=== PATIENT | male | born 1980 | race Caucasian/White ===

== ENCOUNTER 2018-09-22 11:33 | Emergency (ER) | payer OTHER, MEDICAID, SELFPAY ==
[2018-09-22 11:39] VITALS: BP 147/102; PULSE 86; RESP 16; TEMP 36.5; O2SAT 100
[2018-09-22 12:33] LABS: Abs Immature Grans 0.01 k/cumm (0.0-0.09); Absolute Basophil Count 0.02 k/cumm (0.0-0.2); Absolute Eosinophil Count 0.07 k/cumm (0.0-0.7); Absolute Lymphocyte Count 1.72 k/cumm (1.2-3.4); Absolute Monocyte Count 0.84 k/cumm (0.11-0.7); Absolute Neutrophil Count 4.11 k/cumm (1.2-6.7); Basophils % 0.3; HGB 16.9 g/dL (13.5-17.5); Immature Grans % 0.1; Lymphocytes % 25.4; Mean Corp. HGB Concentration 35.2 g/dL (32.0-36.0); Mean Corpuscular Hemoglobin 32.1 pg (27.0-33.0); Mean Corpuscular Volume 91.1 fL (80-95); Mean Platelet Volume 8.9 fL (8.0-11.0); Monocytes % 12.4; Neutrophils % 60.8; Platelet Count 234 x1000/uL (130-400); RBC 5.27 m/cumm (4.50-6.00); RBC Distribution Width 12.6 % (11.8-14.1); White Blood Cell Count 6.77 k/cumm (4.4-10.8)
[2018-09-22] MEDS: Normal Saline 1,000 ML 1000 ML IV (12:34)
[2018-09-22 12:51] LABS: ALT 94 U/L (12-78); AST 31 U/L (15-37); Albumin 4.1 g/dL (3.4-5.0); Alkaline Phosphatase 53 U/L (46-116); Anion Gap 6.3 mmol/L (3-11); BUN 11 mg/dL (7-18); Bilirubin, Total 0.7 mg/dL (0.2-1.0); CO2 31.7 mmol/L (21.0-32.0); CREATININE 0.89 mg/dL (0.70-1.30); Calcium 9.4 mg/dL (8.5-10.1); Chloride 103 mmol/L (98-107); Glucose 91 mg/dL (70-100); Lipase 100 U/L (73-393); Potassium 4.5 mmol/L (3.5-5.1); Sodium 141 mmol/L (136-145)
[2018-09-22] MEDS: Breeza Beverage 473 ML BTL PO ×2 (13:05→13:06)
[2018-09-22] MEDS: Omnipaque 350 MG/ML 50 ML BTL PO (13:05)
[2018-09-22] MEDS: Omnipaque 350 MG/ML 100 ML BTL IJ (13:25)
--- NOTE | 2018-09-22 13:30 | DI.CT_ITS ---
SYMPTOM/DIAGNOSIS: ABDOMINAL PAIN CT ABDOMEN AND PELVIS: CT scan of the abdomen and pelvis was performed following oral and intravenous contrast material. There are no priors for comparison. The lung bases are clear. There is diffuse decreased attenuation of the liver consistent with hepatic steatosis. No suspicious hepatic masses are seen. The portal and superior mesenteric veins are patent. The gallbladder is negative. There is no biliary ductal dilatation. The pancreas is unremarkable as are the spleen and adrenal glands. The kidneys show normal and symmetric enhancement. There are right renal cysts present. No evidence of obstruction is seen. The urinary bladder is intact. The reproductive organs are unremarkable. The abdominal aorta is of normal caliber. No significant abdominal or pelvic adenopathy, ascites or pneumoperitoneum is seen. There is mild diffuse thickening of the wall of the colon predominantly the descending and sigmoid colon. There is question of mild increased attenuation of the pericolonic fat. The remainder of the bowel is unremarkable. There is a normal appendix present. The bones are intact with degenerative changes seen predominantly at the L5-S1 disc level. IMPRESSION: Mild diffuse bowel wall thickening in the distal colon. This may represent a colitis. Please correlate clinically.
--- NOTE | 2018-09-22 14:22 | DI.VRAD_ITS ---
EXAM: CT Abdomen and Pelvis With Contrast EXAM DATE/TIME: 09/22/2018 11:56 AM CLINICAL HISTORY: 38 years old, male; Signs and symptoms; Other: Abdominal pain; Additional info: 1 week of pain with diarrhea and cramping. TECHNIQUE: Axial computed tomography images of the abdomen and pelvis with intravenous contrast. All CT scans at this facility use at least one of these dose optimization techniques: automated exposure control; mA and/or kV adjustment per patient size (includes targeted exams where dose is matched to clinical indication); or iterative reconstruction. Coronal and sagittal reformatted images were created and reviewed. CONTRAST: 100 ml of Omnipaque 350 administered intravenously. COMPARISON: No relevant prior studies available. FINDINGS: Lower thorax: No acute findings. ABDOMEN: Liver: Moderate hepatic steatosis. Gallbladder and bile ducts: Normal. No calcified stones. No ductal dilation. Pancreas: Normal. No ductal dilation. Spleen: Normal. No splenomegaly. Adrenals: Normal. No mass. Kidneys and ureters: Few benign right renal cysts; largest measures 15 mm. Stomach and bowel: There is diffuse mild thickening of the colon wall, without stranding in the surrounding pericolonic fat. The thickening is most prominent in the descending colon. There are possible mild congestive changes in the pericolonic vasculature. The thickening appears partially fatty/submucosal, and this may be chronic, but clinical correlation is needed. Appendix: Normal appendix. PELVIS: Bladder: Unremarkable as visualized. Reproductive: Unremarkable as visualized. ABDOMEN and PELVIS: Intraperitoneal space: Normal. No free air. No significant fluid collection. Bones/joints: Moderate degenerative disc changes, L5-S1. Soft tissues: Unremarkable. Vasculature: Normal. No abdominal aortic aneurysm. Lymph nodes: Normal. No enlarged lymph nodes. IMPRESSION: Diffuse colonic wall thickening as described above, possibly chronic colitis. Acute colitis is felt to be less likely, though clinical correlation is needed. No obstruction. Normal appendix. Dictated and Authenticated by: Rolando Sellers MD. Ordering:EARLENE Craig MD
--- NOTE | 2018-09-22 15:12 | W.ED.GENAD ---
Discharge Plan Disposition Patient Disposition: HOME Condition: Stable Discharge Details Chief Complaint: Nausea/Vomit/Diar Clinical Impression: Chronic colitis Primary Care Provider: Wander Guillermo ED Provider: Rafa Ridley Home Meds and New Rx's Prescriptions: New Prilosec OTC 20 mg tablet,delayed release (DR/EC) 20 mg PO DAILY Qty: 30 RF: 0 Discharge Instructions Instructions: Rectal Bleeding (ED), Colitis (ED) Additional Instructions: Return immediately to the emergency department for any further concerns otherwise it is strongly encouraged for you to follow-up with your primary care provider in the next week along with arranging for further testing with general surgery. Referrals: [facility] [Provider Group] Wander Guillermo MD [Primary Care Provider] - 1 week (For reassessment) Discharge Data Discharge Date/Time-TO BE ENTERED AT DEPARTURE: 09/22/18 15:25 Medical Decision Making Diarrhea for a year and a half, intermittent epigastric pain, heavy alcohol use, over the last week having intermittent black stools and some mild bright red blood with wiping. Patient does state occasional mucus in his stool. 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 No physical exam findings noted but patient did defer rectal examination at this time. Patient does state some rectal itching and pressure so I suspect possible hemorrhoid but again patient refusing rectal examination at this time. Plan to check labs and CT scan. Concern for possible Crohn's, ulcerative colitis, infectious diarrhea. Pending the results patient given IV fluids. Patient does state that he did have Pepto-Bismol in an attempt to improve some of his symptoms. This may be contributing to some of his black stools that patient denies dark tarry but more watery in nature. Review of labs is nondiagnostic with no significant findings and no signs of anemia or electrolyte abnormalities. CT shows inflammatory changes throughout the colon with thickening and concern for possible chronic colitis. I feel that this correlates with patient's history of symptoms going on for a year and a half. Concern for Crohn's versus ulcerative colitis versus other inflammatory etiology. Given stable vital signs, chronic symptoms, no severe anemia and no signs of infection at this time I do feel that patient is able to be followed up on outpatient basis but I would recommend patient has colonoscopy to further diagnose condition. Patient placed up on care management list for arrangement of follow-up with primary care provider preferably in the next week and referral to general surgery for colonoscopy. Patient encouraged to return for any emergent change which were thoroughly discussed with patient otherwise follow-up with PCP. outpatient stool specimen was ordered After discussion of diagnosis and plan of care patient has no further needs, questions, or concerns and states clear understanding to return to the emergency department for any worsening symptoms. HPI General Mode of arrival: ambulatory. Date/Time Provider Initiated Documentation: 09/22/18 11:35. Limitations to Documentation: no limitations. Information obtained by: patient and RN notes reviewed. History of Present Illness described as moderate and similar to prior episodes, Quality is described as other (Denies current pain), Patient started experiencing this year(s) (1.5) and it has been constant. No relieving factors improve symptom(s), No exacerbating factors reported . Patient did receive the following treatments prior to arrival, other (Pepto-Bismol) Related Data Home Medications Medication Instructions Recorded Confirmed omeprazole magnesium [Prilosec OTC] 20 mg PO DAILY #30 tab 09/22/18 Previous Rx's Medication Instructions Recorded omeprazole magnesium [Prilosec OTC] 20 mg PO DAILY #30 tab 09/22/18 Allergies Allergy/AdvReac Type Severity Reaction Status Date / Time No Known Allergies Allergy Unverified 09/22/18 11:47 General Stated Complaint: Nausea/Vomit/Diar YUE: 3 Review of Systems Constitutional Denies chills, Denies fever(s) and Denies poor appetite Cardiovascular Denies chest pain and Denies dyspnea Respiratory Denies cough and Denies dyspnea Gastrointestinal Reports as per HPI, Reports abdominal pain, Denies melena, Reports hematochezia, Denies change in bowel habits, Denies constipation, Reports heartburn, Reports diarrhea, Denies nausea and Denies vomiting Genitourinary Denies hematuria, Denies difficulty urinating, Denies urinary hesitancy, Denies urinary incontinence and Denies urinary urgency Integumentary/Breasts Denies rash PFSH Medical History Alcohol abuse (Chronic) Gastric ulcer (Chronic) Social History Smoking and Tabacco status: Current every day alcohol intake: current alcohol intake frequency: 3 or more drinks per day Alcohol type: beer counseling given: Yes counseling provided: reduce to 2 or less/day substance use type: does not use Exam Const General: cooperative Orientation: alert, awake and oriented x3 Resp Effort & Inspection: normal respiratory effort and able to speak in complete sentences Auscultation: clear to auscultation bilaterally Cardio Rate: regular rate Rhythm: regular rhythm Heart Sounds: S1 normal and S2 normal GI Palpation: soft, no hepatosplenomegaly, not firm, no guarding, no masses, no pulsatile masses, not rigid, no splenomegaly and nontender Auscultation: normal bowel sounds Rectal Exam: deferred Back/Spine/Pelvis Back: no CVA tenderness Neuro General: alert, awake, oriented x3, gait normal and moves all extremities Course Vital Signs Temperature 36.5 C 09/22/18 11:39 Pulse 86 09/22/18 11:39 Respiratory Rate 16 09/22/18 11:39 Blood Pressure 147/102 H 09/22/18 11:39 Pulse Oximetry 100 09/22/18 11:39 Temperature 36.5 C 09/22/18 11:39 Temperature Source Temporal Artery Scan 09/22/18 11:39 Pulse 86 09/22/18 11:39 Respiratory Rate 16 09/22/18 11:39 Respiratory Effort Non-Labored 09/22/18 11:45 Blood Pressure 147/102 H 09/22/18 11:39 Blood Pressure Position Sitting 09/22/18 11:39 Pulse Oximetry 100 09/22/18 11:39 Oxygen Delivery Method Room Air 09/22/18 11:39 Oxygen Flow Rate 0 09/22/18 11:39 Pain Level 0 09/22/18 11:39 Lab/Test Results Lab/Test Results: Laboratory Tests Range/Units 09/22/18 09/22/18 12:15 12:15 WBC (4.4-10.8) k/cumm 6.77 RBC (4.50-6.00) m/cumm 5.27 Hgb (13.5-17.5) g/dL 16.9 Hct (40.0-50.0) % 48.0 MCV (80-95) fL 91.1 MCH (27.0-33.0) pg 32.1 MCHC (32.0-36.0) g/dL 35.2 RDW (11.8-14.1) % 12.6 Plt Count (130-400) x1000/uL 234 MPV (8.0-11.0) fL 8.9 Immature Gran % 0.1 Neutrophils % 60.8 Lymphocytes % 25.4 Monocytes % 12.4 Eosinophils % 1.0 Basophils % 0.3 Absolute Neutrophils (1.2-6.7) k/cumm 4.11 Absolute Lymphocytes (1.2-3.4) k/cumm 1.72 Absolute Monocytes (0.11-0.7) k/cumm 0.84 H Absolute Eosinophils (0.0-0.7) k/cumm 0.07 Absolute Basophils (0.0-0.2) k/cumm 0.02 Sodium (136-145) mmol/L 141 Potassium (3.5-5.1) mmol/L 4.5 Chloride (98-107) mmol/L 103 Carbon Dioxide (21.0-32.0) mmol/L 31.7 Anion Gap (3-11) mmol/L 6.3 BUN (7-18) mg/dL 11 Creatinine (0.70-1.30) mg/dL 0.89 Estimated GFR/1.73 m2 (mL/min/1.73m2) >= 60.00 Glucose (70-100) mg/dL 91 Calcium (8.5-10.1) mg/dL 9.4 Total Bilirubin (0.2-1.0) mg/dL 0.7 AST (15-37) U/L 31 ALT (12-78) U/L 94 H Alkaline Phosphatase (46-116) U/L 53 Total Protein (6.4-8.2) g/dL 8.0 Albumin (3.4-5.0) g/dL 4.1 Lipase (73-393) U/L 100
--- NOTE | 2018-09-22 15:19 | ED.GENADUL_ITS ---
Discharge Plan Disposition Patient Disposition: HOME Condition: Stable Discharge Details Chief Complaint: Nausea/Vomit/Diar Clinical Impression: Chronic colitis Primary Care Provider: Wander Guillermo ED Provider: Rafa Ridley Home Meds and New Rx's Prescriptions: New Prilosec OTC 20 mg tablet,delayed release (DR/EC) 20 mg PO DAILY Qty: 30 RF: 0 Discharge Instructions Instructions: Rectal Bleeding (ED), Colitis (ED) Additional Instructions: Return immediately to the emergency department for any further concerns otherwise it is strongly encouraged for you to follow-up with your primary care provider in the next week along with arranging for further testing with general surgery. Referrals: [facility] [Provider Group] Wander Guillermo MD [Primary Care Provider] - 1 week (For reassessment) Discharge Data Discharge Date/Time-TO BE ENTERED AT DEPARTURE: 09/22/18 15:25 Medical Decision Making Diarrhea for a year and a half, intermittent epigastric pain, heavy alcohol use, over the last week having intermittent black stools and some mild bright red blood with wiping. Patient does state occasional mucus in his stool. 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 No physical exam findings noted but patient did defer rectal examination at this time. Patient does state some rectal itching and pressure so I suspect possible hemorrhoid but again patient refusing rectal examination at this time. Plan to check labs and CT scan. Concern for possible Crohn's, ulcerative colitis, infectious diarrhea. Pending the results patient given IV fluids. Patient does state that he did have Pepto-Bismol in an attempt to improve some of his symptoms. This may be contributing to some of his black stools that patient denies dark tarry but more watery in nature. Review of labs is nondiagnostic with no significant findings and no signs of anemia or electrolyte abnormalities. CT shows inflammatory changes throughout the colon with thickening and concern for possible chronic colitis. I feel that this correlates with patient's history of symptoms going on for a year and a half. Concern for Crohn's versus ulcerative colitis versus other inflammatory etiology. Given stable vital signs, chronic symptoms, no severe anemia and no s igns of infection at this time I do feel that patient is able to be followed up on outpatient basis but I would recommend patient has colonoscopy to further diagnose condition. Patient placed up on care management list for arrangement of follow-up with primary care provider preferably in the next week and referral to general surgery for colonoscopy. Patient encouraged to return for any emergent change which were thoroughly discussed with patient otherwise follow-up with PCP. outpatient stool specimen was ordered After discussion of diagnosis and plan of care patient has no further needs, questions, or concerns and states clear understanding to return to the emergency department for any worsening symptoms. HPI General Mode of arrival: ambulatory . Date/Time Provider Initiated Documentation: 09/22/18 11:35 . Limitations to Documentation: no limitations . Information obtained by: patient and RN notes reviewed . History of Present Illness described as moderate and similar to prior episodes, Quality is described as other (Denies current pain), Patient started experiencing this year(s) (1.5) and it has been constant. No relieving factors improve symptom(s), No exacerbating factors reported . Patient did receive the following treatments prior to arrival, other (Pepto-Bismol) Related Data Home Medications Medication Instructions Recorded Confirmed omeprazole magnesium [Prilosec OTC] 20 mg PO DAILY #30 tab 09/22/18 Previous Rx's Medication Instructions Recorded omeprazole magnesium [Prilosec OTC] 20 mg PO DAILY #30 tab 09/22/18 Allergies Allergy/AdvReac Type Severity Reaction Status Date / Time No Known Allergies Allergy Unverified 09/22/18 11:47 General Stated Complaint: Nausea/Vomit/Diar YUE: 3 Review of Systems Constitutional Denies chills, Denies fever(s) and Denies poor appetite Cardiovascular Denies chest pain and Denies dyspnea Respiratory Denies cough and Denies dyspnea Gastrointestinal Reports as per HPI, Reports abdominal pain, Denies melena, Reports hematochezia, Denies change in bowel habits, Denies constipation, Reports heartburn, Reports diarrhea, Denies nausea and Denies vomiting Genitourinary Denies hematuria, Denies difficulty urinating, Denies urinary hesitancy, Denies urinary incontinence and Denies urinary urgency Integumentary/Breasts Denies rash PFSH Medical History Alcohol abuse (Chronic) Gastric ulcer (Chronic) Social History Smoking and Tabacco status: Current every day alcohol intake: current alcohol intake frequency: 3 or more drinks per day Alcohol type: beer counseling given: Yes counseling provided: reduce to 2 or less/day substance use type: does not use Exam Const General: cooperative Orientation: alert, awake and oriented x3 Resp Effort & Inspection: normal respiratory effort and able to speak in complete sentences Auscultation: clear to auscultation bilaterally Cardio Rate: regular rate Rhythm: regular rhythm Heart Sounds: S1 normal and S2 normal GI Palpation: soft, no hepatosplenomegaly, not firm, no guarding, no masses, no pulsatile masses, not rigid, no splenomegaly and nontender Auscultation: normal bowel sounds Rectal Exam: deferred Back/Spine/Pelvis Back: no CVA tenderness Neuro General: alert, awake, oriented x3, gait normal and moves all extremities Course Vital Signs Temperature 36.5 C 09/22/18 11:39 Pulse 86 09/22/18 11:39 Respiratory Rate 16 09/22/18 11:39 Blood Pressure 147/102 H 09/22/18 11:39 Pulse Oximetry 100 09/22/18 11:39 Temperature 36.5 C 09/22/18 11:39 Temperature Source Temporal Artery Scan 09/22/18 11:39 Pulse 86 09/22/18 11:39 Respiratory Rate 16 09/22/18 11:39 Respiratory Effort Non-Labored 09/22/18 11:45 Blood Pressure 147/102 H 09/22/18 11:39 Blood Pressure Position Sitting 09/22/18 11:39 Pulse Oximetry 100 09/22/18 11:39 Oxygen Delivery Method Room Air 09/22/18 11:39 Oxygen Flow Rate 0 09/22/18 11:39 Pain Level 0 09/22/18 11:39 Lab/Test Results Lab/Test Results: Laboratory Tests Range/Units 09/22/18 09/22/18 12:15 12:15 WBC (4.4-10.8) k/cumm 6.77 RBC (4.50-6.00) m/cumm 5.27 Hgb (13.5-17.5) g/dL 16.9 Hct (40.0-50.0) % 48.0 MCV (80-95) fL 91.1 MCH (27.0-33.0) pg 32.1 MCHC (32.0-36.0) g/dL 35.2 RDW (11.8-14.1) % 12.6 Plt Count (130-400) x1000/uL 234 MPV (8.0-11.0) fL 8.9 Immature Gran % 0.1 Neutrophils % 60.8 Lymphocytes % 25.4 Monocytes % 12.4 Eosinophils % 1.0 Basophils % 0.3 Absolute Neutrophils (1.2-6.7) k/cumm 4.11 Absolute Lymphocytes (1.2-3.4) k/cumm 1.72 Absolute Monocytes (0.11-0.7) k/cumm 0.84 H Absolute Eosinophils (0.0-0.7) k/cumm 0.07 Absolute Basophils (0.0-0.2) k/cumm 0.02 Sodium (136-145) mmol/L 141 Potassium (3.5-5.1) mmol/L 4.5 Chloride (98-107) mmol/L 103 Carbon Dioxide (21.0-32.0) mmol/L 31.7 Anion Gap (3-11) mmol/L 6.3 BUN (7-18) mg/dL 11 Creatinine (0.70-1.30) mg/dL 0.89 Estimated GFR/1.73 m2 (mL/min/1.73m2) >= 60.00 Glucose (70-100) mg/dL 91 Calcium (8.5-10.1) mg/dL 9.4 Total Bilirubin (0.2-1.0) mg/dL 0.7 AST (15-37) U/L 31 ALT (12-78) U/L 94 H Alkaline Phosphatase (46-116) U/L 53 Total Protein (6.4-8.2) g/dL 8.0 Albumin (3.4-5.0) g/dL 4.1 Lipase (73-393) U/L 100
--- NOTE | 2018-09-24 09:23 | PDOC.ERCMPRO ---
Care Management Progress Note 09/24-Binh LOUIS requested assistance with a PCP ([facility]) and general surgery f/u in one week for chonic colitis ? colonoscoy. Referral faxed to [facility] and to General surgery this am.
--- NOTE | 2018-09-24 09:37 | CMPROGNOTE_ITS ---
Care Management Progress Note 09/24-Binh LOUIS requested assistance with a PCP ([facility]) and general surgery f/u in one week for chonic colitis ? colonoscoy. Referral faxed to [facility] and to General surgery this am.
== END 2018-09-22 15:25 | disposition home or self-care (01) ==
PROVIDERS: Emergency Provider Nurse Practitioner Family; PCP Internal Medicine
DX: K52.9 Noninfective gastroenteritis and colitis, unspecified (principal)
CPT/HCPCS: 36415; 80053; 83690; 96360; 99285; 74177; 85025; 99284; J3490; Q9967

== ENCOUNTER 2018-09-23 12:10 | Outpatient (REF) | payer OTHER, MEDICAID, SELFPAY ==
[2018-09-25 11:06] LABS: Campylobacter PCR SEE COMMENTS; Salmonella PCR SEE COMMENTS; Shiga Toxin PCR SEE COMMENTS; Shigella/Enteroinvasive Ecoli SEE COMMENTS
== END 2018-09-23 12:30 ==
LOC: LBN 12:10
PROVIDERS: PCP Internal Medicine; Visit Provider Nurse Practitioner Family
DX: K51.919 Ulcerative colitis, unspecified with unspecified complications (principal)
CPT/HCPCS: 87329; 87505; 82272; 87177

== ENCOUNTER 2018-10-29 11:16 | Day surgery (SDC) | payer OTHER, SELFPAY ==
--- NOTE | 2018-10-29 10:41 | W.PM.ENDDOP ---
Date of service: 10/29/18 Time of Service: 12:30 Endoscopy Report DATE OF PROCEDURE: 10/29/18 PRE-OP DIAGNOSIS: Chronic Diarrhea POST-OP DIAGNOSIS: other (Duodenitis, reflux esophagitis, inflammation on the left side of the colon) PROCEDURE: 1. EGD with biopsies 2. Colonoscopy with biopsies of descendning, sigmoid and rectum SURGEON: Aniya Monet ANESTHESIA: other (General/ ASA 2/ Clau Baez, SENIOR TELECOMMUNICATIONS TECHNICIAN) ESTIMATED BLOOD LOSS: 5 PATHOLOGY: other (duodenal bx, antrum bx, ge junction/esophagus bx, descending and sigmoid bx, rectum bx) COMPLICATIONS: None DISPOSITION: same day INDICATIONS: Mr. Servin is a pleasant 38 year old male seen in the office for chronic diarrhea. He is also a heavy drinker. Recomendation was made for a colonoscopy and EGD. Risks, benefits and complications have been reviewed. Complications include but are not limited to bleeding, pain, perforation, missed small lesion/polyp, sore throat, aspiration and adverse reaction to the medications. Questions were entertained and answered to their satisfaction and they wished to proceed. No guarantees were given or implied. PREP: Miralax/Dulcolax PROCEDURE START TIME: 12:30 PROCEDURE END TIME: 13:20 COLONOSCOPY RETRACTION TIME: 24 minutes FINDINGS: Inflammation of the duodenum, esophagus. Signs of reflux Patchy inflammation of the descendning, sigmoid and rectum PROCEDURE DESCRIPTION: After informed consent was obtained the patient was take to the procedure room and placed in a supine position. Monitors were applied and a time out was done. The patients name, date of , procedure type, allergies to medications and metal in their body was reviewed. A bite block was placed and the patient was sedated. Once sedated and comfortable the gastroscope was advanced through the oropharynx which was grossly normal into the esophagus. The proximal and mid-esophagus were normal. In the distal esophagus there was some inflammation noted. The scope was advanced into the stomach and through the pylorus into the 3rd portion of the duodenum. The duodenum was noted to be inflammend in the 1st and 2nd portion. Biopsies were done of the duodenum to r/o celiac. The scope was retracted back into the stomach and biopsies were done to rule out H. pylori. There were no ulcers. The scope was retro-fexed. The cardia and fundus were noted to be normal. There was no hiatal hernia noted. The scope was retracted back into the esophagus and biopsies were done of the GE junction and esophagus from 40 to 36 cm to rule out Pyle's. The Z line was irregular. The GE junction was at 40 cm. While the patient was still sedated they were placed in a left decubitous position. A rectal exam was done. External exam was normal. Internal exam revealed a normal sphincter tone and no palpable masses. The prostate was smooth. The scope was then introduced and retro-flexed. No internal hemorrhoids were identified. There were no polyps and no mass in the rectum. ? cobbelstone mucusa in the rectum. The scope was then advanced to the cecum without difficulty. The TI and appendiceal orifice were identified. The prep was adequate. The scope was then slowly retracted over 24 minutes back into the rectum. Biopsies were done from the splenic flexure to the rectum. There was patchy inflammation noted from the splenic flexure to the rectum. The scope was removed and the patient was woken up and taken back to Same day surgery in stable condition. The patient tolerated the procedure well and there were no immediate complications. Follow up: 2-3 weeks
--- NOTE | 2018-10-29 10:43 | W.PM.DSUDISC ---
Discharge Plan Disposition Patient Disposition: HOME Condition: Good Discharge Details Reason For Visit: Colonoscopy and EGD Attending Provider: Aniya Monet Primary Care Provider: Wander Guillermo Home Meds and New Rx's Prescriptions: Continued albuterol 90 mcg/actuation aerosol IH RF: 0 Discontinued polyethylene glycol 3350 17 gram powder in packet 255 g PO DAILY Qty: 15 RF: 0 bisacodyl [Dulcolax (bisacodyl)] 5 mg tablet,delayed release (DR/EC) 5 mg PO ONCE Qty: 4 RF: 0 Discharge Instructions Instructions: Colonoscopy (DC), Upper Endoscopy (DC), Esophagitis (DC), Gastritis (DC), Gastroesophageal Reflux Disease (DC), Diet for Stomach Ulcers and Gastritis (GEN), Duodenitis (DC) Additional Instructions: Findings: Inflammation in the stomach, small bowel and esophagus Inflammation of the large bowel on the left Follow up: 11/13/18 @ 1:15 pm Please call if you develop: fevers >101.5 Nausea or Vomiting Abdominal pain that is not transient DAY SURGERY UNIT POST COLONOSCOPY INSTRUCTIONS 1. Because there will be medication in your system for the next 24 hours, you may feel a little sleepy. Your coordination will be affected. Therefore: a. Do not drive or operate dangerous equipment for 24 hours. b. Do not drink alcohol beverages for 24 hours (not even beer). c. Plan to go home and rest for the day. 2. Generally there are no restrictions on your activity after a day or so has gone by, but you may feel a bit fatigued for a few days. 3 After you arrive home you may have a light meal and return to a normal diet as you can tolerate it without feeling sick to your stomach. 4. After surgery, you may feel pain or discomfort. This should be only transient, but if it persists please contact your doctor. 5. If there are any questions regarding the findings of your procedure, please feel free to contact your doctor. 6. If you are unable to contact your doctor with a problem, contact the hospital at [phone]. 7. Continue all your regular medications unless directed otherwise. I understand the above instructions and have no questions. Signature of Patient or Responsible Adult Escort Date/Time Name of Responsible Adult Escort Signature of Nurse Date/Time Referrals: Aniya Monet MD [ [facility] STAFF PHYSICIAN] - 10/29/18 1:47 pm Activity:: Activity as Tolerated Diet:: As Tolerated Discharge Orders Discharge Orders: Discharge Order (Routine); Ordered 10/29/18 Ordered By: Aniya Moent DS: Diagnosis Discharge Diagnosis (1) S/P colonoscopy: Status: Acute (2) H/O esophagogastroduodenoscopy: Status: Chronic (3) Esophagitis: Status: Acute (4) Gastritis and duodenitis: Status: Acute (5) Colitis: Status: Acute
[2018-10-29 11:35] VITALS: BP 147/102; PULSE 86; RESP 20; TEMP 37.1; O2SAT 97
[2018-10-29 11:39] VITALS: BP 147/102; PULSE 86; RESP 20; TEMP 37.1; O2SAT 97
[2018-10-29] MEDS: Lactated Ringers 1,000 ML 80 ML IV (12:08)
--- NOTE | 2018-10-29 12:32 | BOWEL_PTH ---
PATIENT: Kosta Servin LOC: [facility] U#:[id number] AGE/SX: 38/M ROOM: RE10/29/[address]: Aniya Monet MD : 1980 BED: DIS: 10/29/2018 SPEC #: [id number] RECD: 10/29/18 15:47 STATUS: SIM REQ #: [id number] NATALIE: 10/29/18 12:[address]: Aniya Monet DEPT: Surgical Specimen RECD BY: America Gooden ENTERED: 10/29/18 15:49 SP TYPE: Bowel OTHR DR: Wander Guillermo Tissues: 1 - BIOPSY BOWEL 2 - BIOPSY BOWEL 3 - BIOPSY BOWEL 4 - BIOPSY BOWEL 5 - BIOPSY BOWEL Procedures: GROSS AND MICRO LEVEL 4 Comments: [id number]
[2018-10-29 14:00] VITALS: BP 147/84; PULSE 73; RESP 16; TEMP 36.3; O2SAT 98
[2018-10-29 14:32] LABS: C-Reactive Protein 0.14 mg/dL (0.0-0.3)
[2018-11-02 00:48] LABS: Saccharomyces cerevisiae IgA <10.0 U; Saccharomyces cervisiae IgG 12.4 U
== END 2018-10-29 14:11 | disposition home or self-care (01) ==
LOC: SUR 11:16
PROVIDERS: PCP Internal Medicine; Visit Provider Surgery
PROC: (CPT 45380; principal; 2018-10-29 11:30)
DX: K52.9 Noninfective gastroenteritis and colitis, unspecified (principal); K52.832 Lymphocytic colitis; K62.89 Other specified diseases of anus and rectum; K21.0 Gastro-esophageal reflux disease with esophagitis; F10.10 Alcohol abuse, uncomplicated; F17.210 Nicotine dependence, cigarettes, uncomplicated; I10 Essential (primary) hypertension
CPT/HCPCS: 45380; 43239; 36415; 88305; 86140; 86255; 86671; J3010

== ENCOUNTER 2020-11-11 10:28 | Outpatient (REF) | payer BC, SELFPAY ==
[2020-11-11 13:32] LABS: MCH 32.5 pg (27.0-33.0); MCHC 34.7 % (32.0-36.0); MCV 93.7 fL (80-95); MPV 9.3 fL (8.0-11.0); Platelet Count 221 10^3/uL (130-400); RBC 5.23 10^6/uL (4.36-5.78); RDW 11.8 % (11.8-14.1); RDW-SD 40.5 fL; WBC 5.48 10^3/uL (4.4-10.8)
[2020-11-11 13:52] LABS: ALT 51 U/L (16-63); AST 19 U/L (15-37); Albumin 4.4 g/dL (3.4-5.0); Alkaline Phosphatase 49 U/L (46-116); Anion Gap 3.7 mmol/L (3-11); BUN 19 mg/dL (7-18); Bilirubin, Total 0.6 mg/dL (0.2-1.0); CO2 27.3 mmol/L (21.0-32.0); CREATININE 0.9 mg/dL (0.70-1.30); Calcium 9.6 mg/dL (8.5-10.1); Chloride 102 mmol/L (98-107); Glucose 88 mg/dL (74-106); Potassium 4.5 mmol/L (3.5-5.1); Sodium 133 mmol/L (136-145); Total Protein 7.8 g/dL (6.4-8.2)
== END 2020-11-11 10:29 | disposition home or self-care (01) ==
LOC: NCHCN 10:28
PROVIDERS: PCP Internal Medicine; Visit Provider Family Medicine
DX: I10 Essential (primary) hypertension (principal); F10.20 Alcohol dependence, uncomplicated
CPT/HCPCS: 80053; 85027

== ENCOUNTER 2020-12-17 09:55 | Emergency (ER) | payer BC, SELFPAY ==
[2020-12-17 10:01] VITALS: BP 163/109; PULSE 94; RESP 16; TEMP 36.4; O2SAT 96
--- NOTE | 2020-12-17 10:16 | ED.GENADUL_ITS ---
Discharge Plan Disposition Patient Disposition: HOME Condition: Stable Discharge Details Clinical Impression: Lumbago Primary Care Provider: Wander Guillermo ED Provider: Olivia Hilton Home Meds and New Rx's Prescriptions: New cyclobenzaprine 10 mg tablet 10 mg PO TID PRN (Reason: muscle spasm) Qty: 10 RF: 0 tramadol 50 mg tablet 50 mg PO BID PRN (Reason: pain) Qty: 6 RF: 0 No Action albuterol 90 mcg/actuation aerosol IH RF: 0 budesonide 3 mg capsule,delayed,extend.release 3 mg PO DAILY Qty: 42 RF: 0 cyanocobalamin (vitamin B-12) 1,000 mcg Tablet 1,000 mcg PO DAILY RF: 0 diltiazem HCl 120 mg capsule,extended release 24 hr 120 mg PO DAILY RF: 0 ibuprofen 400 mg Tablet 400 mg PO TID PRNRF: 0 multivitamin with minerals Tablet 1 tab PO .QOD RF: 0 Discharge Instructions Instructions: Low Back Strain (ED), Lower Back Exercises (ED) Additional Instructions: Alternate ice and heat. Take medications as directed. No driving or operating heavy machinery while on medications. Follow up with primary care provider in 3-5 days. Return to ED sooner if any worsening or concerns. Increase oral fluids. Please take Tylenol or Ibuprofen with food every 4-6 hours as needed for pain and swelling. Stand Alone Forms: Work Release Referrals: Wander Guillermo MD [Primary Care Provider] - Medical Decision Making 40-year-old male presents the ER chief complaint of lower back pain which began on Monday after pushing a large piece of equipment while at work. He states he does have a history of back problems and a bulging disc approximately L4-L5. States since then he has had increased pain, denies any loss of bowel or bladder control, denies any saddle anesthesia. He does report some mild tingling in his toes intermittently. Pain gets worse with bending forward and is worse in the mornings. He has taken ibuprofen prior to arrival with little to no relief. He did have an MRI in 2017 that showed bulging disc at L4-L5. At this time no evidence for cauda equina or spinal cord compression. Denies any saddle anesthesia or loss of bowel or bladder control. Will begin with lumbar x-rays IM Toradol and IM diazepam. EXAM: XR LUMBAR SPINE COMPLETE CLINICAL HISTORY: Low back pain TECHNIQUE: COMPARISON: No exams were available for comparison FINDINGS: Five views were obtained. There is loss of height of the L5-S1 intervertebral disc consistent with disc degeneration. There are mild hypertrophic endplate changes at this level and mild hypertrophic facet joint changes of the lower lumbar spine. There is no evidence of spondylolysis or spondylolisthesis. No fracture identified. No gross erosive or destructive process. IMPRESSION: Degenerative changes of the lumbar spine as described above. No evidence of acute process Patient reevaluation, he states that he feels better after the medications. Discussed x-ray results with him he verbalizes understanding. Discuss strict return instructions and follow-up care with PCP HPI General Mode of arrival: ambulatory . Date/Time Provider Initiated Documentation: 12/17/20 09:58 . Limitations to Documentation: no limitations . Information obtained by: patient and old records reviewed . HPI Narrative: 40-year-old male presents the ER chief complaint of lower back pain which began on Monday after pushing a large piece of equipment while at work. He states he does have a history of back problems and a bulging disc approximately L4-L5. States since then he has had increased pain, denies any loss of bowel or bladder control, denies any saddle anesthesia. He does report some mild tingling in his toes intermittently. Pain gets worse with bending forward and is worse in the mornings. He has taken ibuprofen prior to arrival with little to no relief. He did have an MRI in 2017 that showed bulging disc at L4-L5. Related Data Home Medications Medication Instructions Recorded Confirmed albuterol 90 mcg/actuation aerosol mcg IH 10/08/18 10/19/18 inhaler budesonide 3 mg 3 mg PO DAILY #42 cap 11/05/18 12/17/20 capsule,delayed,extended release cyanocobalamin (vitamin B-12) 1,000 mcg PO DAILY 12/17/20 12/17/20 cyclobenzaprine 10 mg PO TID PRN #10 tab 12/17/20 diltiazem HCl 120 mg PO DAILY 12/17/20 12/17/20 ibuprofen 400 mg PO TID PRN 12/17/20 12/17/20 multivitamin with minerals 1 tab PO .QOD 12/17/20 12/17/20 tramadol 50 mg PO BID PRN #6 tab 12/17/20 Previous Rx's Medication Instructions Recorded budesonide 3 mg 3 mg PO DAILY #42 cap 11/05/18 capsule,delayed,extended release cyclobenzaprine 10 mg PO TID PRN #10 tab 12/17/20 tramadol 50 mg PO BID PRN #6 tab 12/17/20 Allergies Allergy/AdvReac Type Severity Reaction Status Date / Time lisinopril Allergy Intermediate unknown Verified 12/17/20 10:06 General Stated Complaint: Nk/Back Pain YUE: 4 Review of Systems All systems reviewed & are unremarkable except as noted in HPI and below Musculoskeletal Musculoskeletal: Reports back pain PFSH Medical History Alcohol abuse Chronic diarrhea of unknown origin Chronic pain Gastric ulcer GERD (gastroesophageal reflux disease) Hypertension Smoker Surgical History History of back surgery Social History Smoking/Tobacco Use Status: Current every day Tobacco Type: cigarettes Smoking packs per day: 0.5 Smoking cigarettes per day: 10.0 Smoking risk assessment performed?: Yes Alcohol Intake: current Alcohol Intake frequency: 3 or more drinks per day Alcohol type: beer Counseling given: Yes Counseling provided: reduce to 2 or less/day Details: drinks 12 to 15 Beers per day Drug use: Current Sobriety Substance use type: does not use Household members: family Housing: house Number of Children: 2 Do you feel safe in your relationship?: Yes Exam Back/Spine/Pelvis Back: no CVA tenderness Thoracic/Lumbar Spine: No kyphosis, paraspinal tenderness (Left lumbar paraspinal tenderness ), No thoracic spinal tenderness and No lumbar spinal tenderness Pelvis: no pain with anterior-posterior compression Course Vital Signs Vital signs: Vital Signs Temperature 36.4 C L 12/17/20 10:01 Pulse 94 H 12/17/20 10:01 Respiratory Rate 16 12/17/20 10:01 Blood Pressure 163/109 H 12/17/20 10:01 Pulse Oximetry 96 12/17/20 10:01 Temperature 36.4 C L 12/17/20 10:01 Temperature Source Skin 12/17/20 10:01 Pulse 94 H 12/17/20 10:01 Respiratory Rate 16 12/17/20 10:01 Respiratory Effort Non-Labored 12/17/20 10:01 Blood Pressure 163/109 H 12/17/20 10:01 Blood Pressure Position Sitting 12/17/20 10:01 Pulse Oximetry 96 12/17/20 10:01 Oxygen Delivery Method Room Air 12/17/20 10:01 Oxygen Flow Rate 0 12/17/20 10:01 Pain Level 10 12/17/20 10:07
--- NOTE | 2020-12-17 10:30 | DI.RAD_ITS ---
Exam(s) XR LUMBAR SPINE COMPLETE EXAM: XR LUMBAR SPINE COMPLETE CLINICAL HISTORY: Low back pain TECHNIQUE: COMPARISON: No exams were available for comparison FINDINGS: Five views were obtained. There is loss of height of the L5-S1 intervertebral disc consistent with d isc degeneration. There are mild hypertrophic endplate changes at this level and mild hypertrophic f acet joint changes of the lower lumbar spine. There is no evidence of spondylolysis or spondylolisth esis. No fracture identified. No gross erosive or destructive process. IMPRESSION: Degenerative changes of the lumbar spine as described above. No evidence of acute process RADIATION DOSE DELIVERED: Total DLP
[2020-12-17] MEDS: diazePAM 10 MG/2 ML SYR 5 MG IM (10:46)
[2020-12-17] MEDS: Ketorolac 60 MG/2 ML VIAL IM (10:47)
[2020-12-17] MEDS: Cyclobenzaprine 10 MG TAB, 3 TABS/BTL PO (11:23)
== END 2020-12-17 11:22 | disposition home or self-care (01) ==
PROVIDERS: Emergency Provider Registered Nurse Emergency; PCP Internal Medicine
DX: S39.012A Strain of muscle, fascia and tendon of lower back, initial encounter (principal); X50.9XXA Other and unspecified overexertion or strenuous movements or postures, initial encounter; Y99.0 Civilian activity done for income or pay
CPT/HCPCS: 96372; 99284; 72110; 99283; J1885; J3360

== ENCOUNTER 2021-08-06 15:53 | Outpatient (REF) | payer BC, SELFPAY ==
--- NOTE | 2021-08-06 12:30 | SKI_PTH ---
PATIENT: Kosta Servin LOC: [facility] U#:[id number] AGE/SX: 41/M ROOM: RE08/06/[address]: Jesus Baez : 1980 BED: DIS: 08/06/2021 SPEC #: [id number] RECD: 08/09/21 12:46 STATUS: SIM REQ #: [id number] NATALIE: 08/06/21 12:[address]: Jesus Baez DEPT: Surgical Specimen RECD BY: Sarah Marcus ENTERED: 08/09/21 12:47 SP TYPE: BRODY GARCIA DR: Wander Guillermo Tissues: 1 - SKIN BIOPSY(SHAVE/PUNCH) Procedures: SKIN LEVEL 4 Comments: [id number]
== END 2021-08-06 15:54 | disposition home or self-care (01) ==
LOC: LBN 15:53
PROVIDERS: PCP Internal Medicine; Visit Provider Nurse Practitioner Family
DX: L28.1 Prurigo nodularis (principal)
CPT/HCPCS: 88305

== ENCOUNTER 2024-04-01 17:20 | Outpatient (CLI) | payer BC, SELFPAY ==
--- OUTSIDE RECORDS SUMMARY | 2024-04-01 17:21 | XMS_ITS | Encounter Summary ---
Author Organization [facility] Address [facility] [place] [address] Care Team Providers Care Guide Domestic Tour Name Role Phone Wander Guillermo MD Primary Care Provider [phone] Reason for Visit * Auth/Cert Specialty Diagnoses / Procedures Referred By Clare ceron Referred To Contact Diagnoses Intervertebral disc disorders with radiculopathy, lumbar region lumbar radiculopathy Procedures PRO INJECTION DX/THER SBST INTRLMNR LMBR/SAC W/IMG GDN INJECTION, EPIDURAL, LUMBAR OR SACRAL (CAUDAL), WITH IMAGING GUIDANCE (WRVU 1.8) Referral ID Status Reason Start Date Expiration Date Visits Re quested Visits Authorized [id number] 1 1 Encounter Details Date Type Department Care Team (Late st Contact Info) Description 05/28/2021 3:30 PM EDT Ancillary [place] [id number] Drake Steiner MD [facility] [place] [address] Pain Social History Tobacco Use Types Packs/Day Years Used Date Smoking Tobacco: Every Day Cigarettes Smokeless Tobacco: Former Chew Sex and Gender Information Value Date Recorded Sex Assigned at Not on file Gender Identity Not on file Sexual Orientation Not on file documented as of this encounter Plan of Treatment Not on file documented as of this encounter Procedures Procedure Name Priority Date/Time Associated Diagnosis Comments FILM LIBRARY STORAGE ONLY PAIN CLINIC C ARM Routine 05/28/2021 4:22 PM EDT Pain documented in this encounter Results * Film Library- Storage Only pain Clinic C-Arm (05/28/2021 4:22 PM EDT) Narrative [facility] - 05/28/2021 4:22 PM EDT See PACS for result report. Drake Steiner MD IMG FILM LIBRARY ORD ERABLES [place], [place] documented in this encounter Visit Diagnoses Diagnosis Pain Generalized pain documented in this encounter Care Teams Guide Domestic Tour Relationship Specialty Start Date End Date Wander Guillermo MD [address] [place] [address] PCP - General Internal Medicine 12/28/20 documented as of this encounter
--- OUTSIDE RECORDS SUMMARY | 2024-04-01 17:21 | XMS_ITS | Encounter Summary ---
Author Organization [facility] Address [facility] [place] [address] Care Team Providers Care Fruit Farmer Name Role Phone Filomena Huber MD Primary Care Provider [phone] Encounter Details Date Type Department Care Team (Latest Contact Info) Description 11/10/2016 9:22 AM EDT - 11/10/2016 11:59 PM EDT Hospital Encounter XRay at [address] [place] [address] Emery Bowling MD [facility] [place] [address] Lumbar herniated disc Discharge Disposition: Home Social History Tobacco Use Types Packs/Day Years Used Date Smoking Tobacco: Every Day Cigarettes Smokeless Tobacco: Former Chew Sex and Gender Information Value Date Recorded Sex Assigned at Not on file Gender Identity Not on file Sexual Orientation Not on file documented as of this encounter Medications at Time of Discharge Medication Sig Dispensed Refills Start Date End Date ibuprofen (ADVIL;MOTRIN) 200 mg Tablet Take 800 mg by mouth every 8 hours as needed for Pain. gabapentin (NEURONTIN) 300 mg Capsule Take 3 capsules by mouth 3 times daily. 0 10/24/2016 05/14/2021 documented as of this encounter Plan of Treatment Not on file documented as of this encounter Procedures Procedure Name Priority Date/Time Associated Diagnosis Comments XR LUMBAR SPINE 2 OR 3 VIEWS Routine 11/10/2016 9:44 AM EDT Lumbar herniated disc documented in this encounter Results * XR Lumbar Spine 2 Or 3 Views (Generic) (11/10/2016 9:44 AM EDT) Anatomical Region Laterality Modality L-spine N/A Digital Radiogra phy Impressions 11/10/2016 9:55 AM EDT Degenerative disease of lumbar spine is present and most prominent in the lower lumbar spine. No instability. Narrative 11/10/2016 9:55 AM EDT EXAMINATION: XR LUMBAR SPINE 2 OR 3 VIEWS (GENERIC) CLINICAL HISTORY: AP lat flex/ext 3 views to eval lumbar herniated disc TECHNIQUE: Lumbar spine AP and lateral during flexion and extension. COMPARISON: None FINDINGS: There are five nonrib-bearing lumbar-type vertebrae. A tilt of the lumbar spine suggests that a thoracolumbar scoliosis is present. There is very mild narrowing of the L4-L5 disc interspace and of the L5-S1 disc interspace. Endplate associated osteophytes are seen at L5-S1. No instability is detected during flexion or extension. Procedure Note Jeff Becerra MD - 11/10/2016 EXAMINATION: XR LUMBAR SPINE 2 OR 3 VIEWS (GENERIC) CLINICAL HISTORY: AP lat flex/ext 3 views to eval lumbar herniated disc TECHNIQUE: Lumbar spine AP and lateral during flexion and extension. COMPARISON: None FINDINGS: There are five nonrib-bearing lumbar-type vertebrae. A tilt of the lumbar spine suggests that a thoracolumbar scoliosis ispresent. There is very mild narrowing of the L4-L5 disc interspace and of the L5-S1disc interspace. Endplate associated osteophytes are seen at L5-S1. No instability is detected during flexion or extension. IMPRESSION Degenerative disease of lumbar spine is present and most prominent in thelower lumbar spine. No instability. Emery oBwling MD IMG DX ORDERABLES documented in this encounter Visit Diagnoses Diagnosis Lumbar herniated disc Displacement of lumbar intervertebral disc without myelopathy documented in this encounter Care Teams Fruit Farmer Relationship Specialty Start Date End Date Filomena Huber MD [address] [place] [address] PCP - General 07/06/10 12/27/20 documented as of this encounter
--- OUTSIDE RECORDS SUMMARY | 2024-04-01 17:21 | XMS_ITS | Encounter Summary ---
Author Organization [facility] Address [address] [place] [address] Care Team Providers Care Senior Project Manager Name Role Phone Unavailable Primary Care Provider Unavailabl e Encounter Details Date Type Department Care Team (Latest Contact Info) Description 04/10/2001 17:40 EDT Hospital Encounter [facility] - [facility] [address] [place] [address] Emergency, Mana, MD Discharge Disposition: Home or Self Care Social History Tobacco Use Types Packs/Day Years Used Date Smoking Tobacco: Never Assessed Sex and Gender Information Value Date Recorded Sex Assigned at Not on file Gender Identity Not on file Sexual Orientation Not on file documented as of this encounter Discharge Disposition Disposition Code Departure Means Destination Home or Self Care documented in this encounter Plan of Treatment Not on file documented as of this encounter Procedures Procedure Name Priority Date/Time Associated Diagnosis Comments ANKLE 3 OR MORE VIEWS Routine 04/10/2001 18:18 EDT documented in this encounter Results * ANKLE 3 OR MORE VIEWS (04/10/2001 18:18 EDT) Anatomical Region Laterality Modality Other 04/10/2001 18:1 8 EDT Narrative 06/24/2009 3:20 EST LATERAL ANKLE INJURY W/ SWELLING TTP R/O LATERAL ANKLE FX RIGHT ANKLE: 04/10/01 TIME: 1810 FINDINGS: Three views of the right ankle show marked soft tissue swelling laterally and a small joint effusion. No fracture is identified. The mortise is intact. /eduarda Procedure Note Stephanie Horton, RN / P, M Peter Randle MD - 06/24/2009 LATERAL ANKLE INJURY W/ SWELLING TTP R/O LATERAL ANKLE FX RIGHT ANKLE: 04/10/01 TIME: 1810 FINDINGS: Three views of the right ankle show marked soft tissue swelling laterally and a small joint effusion. No fracture is identified. The mortise is intact. /eduarda Vasyl [facility] ING ORDERABLES documented in this encounter Visit Diagnoses Not on filedocumented in this encounter
--- OUTSIDE RECORDS SUMMARY | 2024-04-01 17:21 | XMS_ITS | Encounter Summary ---
Author Organization [facility] Address [facility] [place] [address] Care Team Providers Care Cable Maker Name Role Phone Filomena Huber MD Primary Care Provider [phone] Encounter Details Date Type Department Care Team (Latest Contact Info) Description 11/07/2016 - 11/07/2016 11:59 PM EDT Hospital Encounter [place] [address] Emery Bowling MD [facility] [place] [address] Pain Discharge Disposition: Home Social History Tobacco Use Types Packs/Day Years Used Date Smoking Tobacco: Never Assessed Sex and Gender Information Value Date Recorded Sex Assigned at Not on file Gender Identity Not on file Sexual Orientation Not on file documented as of this encounter Medications at Time of Discharge Medication Sig Dispensed Refills Start Date End Date gabapentin (NEURONTIN) 300 mg Capsule Take 3 capsules by mouth 3 times daily. 0 10/24/2016 05/14/2021 ibuprofen (ADVIL;MOTRIN) 600 mg tablet 600MG = 1 Tablet(s), PO, Q8H PRN 05/02/2006 11/10/2016 gabapentin (NEURONTIN) 600 mg tablet 11/18/2005 11/10/2016 documented as of this encounter Plan of Treatment Not on file documented as of this encounter Procedures Procedure Name Priority Date/Time Associated Diagnosis Comments FILM LIBRARY STORAGE ONLY MR SPINE Routine 11/07/2016 12:00 AM EDT Pain documented in this encounter Results * Film Library- Storage Only MR Spine (11/07/2016 12:00 AM EDT) Narrative [facility] - 11/08/2016 4:32 PM EDT This exam is for storage only and is auto-finalizing. Emery Bowling MD IMG FILM LIBRARY ORD ERABLES [place], [place] documented in this encounter Visit Diagnoses Diagnosis Pain Generalized pain documented in this encounter Care Teams Cable Maker Relationship Specialty Start Date End Date Filomena Huber MD [address] [place] [id number] PCP - General 07/06/10 12/27/20 documented as of this encounter
--- OUTSIDE RECORDS SUMMARY | 2024-04-01 17:21 | XMS_ITS | Encounter Summary ---
[facility] Organization [facility] [place] [address] Care Team Providers Care Video Game Programmer Name Role Phone Wander Guillermo MD Primary Care Provider + [phone] Reason for Visit * Auth/Cert Specialty Diagnoses / Procedures Referred By Clare ceron Referred To Contact Diagnoses Intervertebral disc disorders with radiculopathy, lumbar region lumbar radiculopathy Procedures PRO INJECTION DX/THER SBST INTRLMNR LMBR/SAC W/IMG GDN INJECTION, EPIDURAL, LUMBAR OR SACRAL (CAUDAL), WITH IMAGING GUIDANCE (WRVU 1.8) Referral ID Status Reason Start Date Expiration Date Visits Re quested Visits Authorized [id number] 1 1 Encounter Details Date Type Department Care Team (Latest Contact Info) Description 05/28/2021 2:37 PM EDT - 05/28/2021 4:21 PM EDT Hospital [place] [address] Drake Steiner MD [facility] [address] [place] [address] Radiculopathy of lumbar region; Herniation of lumbar intervertebral disc with radiculopathy Discharge Disposition: Home Social History Tobacco Use Types Packs/Day Years Used Date Smoking Tobacco: Every Day Cigarettes Smokeless Tobacco: Former Chew Sex and Gender Information Value Date Recorded Sex Assigned at Not on file Gender Identity Not on file Sexual Orientation Not on file documented as of this encounter Last Filed Vital Signs Vital Sign Reading Time Taken Comments Blood Pressure 152/102 05/28/2021 4:10 PM EDT Pulse 85 05/28/2021 3:10 PM EDT Temperature - - Respiratory Rate 21 05/28/2021 4:10 PM EDT Oxygen Saturation 100% 05/28/2021 4:10 PM EDT Inhaled Oxygen Concentration - - Weight 117.9 kg (260 lb) 05/28/2021 3:10 PM EDT Height 188 cm (6' 2) 05/28/2021 3:10 PM EDT Body Mass Index 33.38 05/28/2021 3:10 PM EDT documented in this encounter Discharge Instructions * Discharge Instructions* Fabian Wilkinson - 05/28/2021 4:15 PM EDT Pain Management Center Discharge Instructions: You were seen today by Surgeon(s): Drake Steiner MD The following was performed: Procedure(s) (LRB): INJECTION, EPIDURAL, LUMBAR OR SACRAL (CAUDAL), WITH IMAGING GUIDANCE (WRVU 1.8) (Left) It is normal that the injection site will be sore for up to 48 hours. [x] You may also experience mild stiffness in the joint near the injection site. You may resume your normal activities: tomorrow. You may shower today. DO NOT tub bathe, use whirlpools, hot tubs or pool therapy for 2 days. RemoveBand-Aid(s) later today/tomorrow. Do not drive until tomorrow. Use caution walking/climbing stairs as you may be unsteady on your feet. You may use your usual medications, including pain medications, as directed, unless otherwise instructed. You may use an ice pack as needed for the first 24 hours, on for 20 minutes then off for 20 minutes. Do not apply heat today. Attempt to empty your bladder 4-6 hours after your procedure. You received the following medications: Medications Given During Procedure Date/Time Order Dose Route Action 05/28/2021 1614 iohexoL (Omnipaque) (240 mg/mL) injection solution 1 mL Epidural Given 05/28/2021 1614 lidocaine (pf) (Xylocaine) (10 mg/mL) 1% injection 1 mL Other Given 05/28/2021 1614 methylPREDNISolone acetate (DEPO-Medrol) (80 mg/mL) injection 80 mg Epidural Given During regular business hours, please phone the Pain Management Center at with any questions or if the following or other troubling symptoms develop: 1) Prolonged dizziness or weakness (more than 1 day). 2) Localized swelling, redness or drainage at the injection site(s). 3) Temperature of 101 degrees that lasts for more than 4 hours. After 5 PM or on weekends, call and ask for Pain Clinic provider on-call. If you are unable to reach the Pain Management Center and have a complication, please call your Primary Care Provider or proceed to your local emergency department. Fabian Wilkinson Special instructions documented in this encounter Medications at Time of Discharge Medication Sig Dispensed Refills Start Date End Date multivitamin with minerals (Multivitamins with Minerals) 9 mg iron/15 mL Liquid Take 1 tablet by mouth. 12/17/2020 dilTIAZem (TIAZAC) 120 mg Capsule,Sustained Action 24 hr TAKE ONE CAPSULE BY MOUTH EVERY DAY 04/07/2021 traMADoL (Ultram) 50 mg Tablet Take 50 mg by mouth 2 times daily. 05/13/2021 ibuprofen (ADVIL;MOTRIN) 200 mg Tablet Take 800 mg by mouth every 8 hours as needed for Pain. documented as of this encounter H&P Notes * Drake Steiner MD - 05/28/2021 4:21 PM EDT Patient Name: Kosta Servin Patient Age: 41 y.o. Birthdate: 1980 Admit date: 05/28/2021 Attending Physician: Drake Steiner MD PREPROCEDURE HISTORY AND PHYSICAL Date of Visit: May 28, 2021 Chief Complaint: Low back pain radiating to the LLE HPI: Subjective Kosta Servin is a 41 y.o. male who presents today for Procedure: LESI Referred by Valentin Westbrook, DO The patient denies any recent NSAID or anticoagulation. The patient denies any allergy to local anesthetics, contrast dye, or steroids. The history is obtained from the patient, and I have reviewed medical records provided by the referring physician and located in the electronic medical record to fill in gaps in the patient's recollection of events, treatments and outcomes. LOCATION: Low back pain radiating to the LLE PAIN LEVEL AT REST 5/10 PAST MEDICAL HISTORY: No past medical history on file. PAST SURGICAL HISTORY: Past Surgical History: Procedure Laterality Date ??? PRO INJECTION DX/THER SBST INTRLMNR LMBR/SAC W/IMG GDN Left 05/28/2021 INJECTION, EPIDURAL, LUMBAR OR SACRAL (CAUDAL), WITH IMAGING GUIDANCE (WRVU 1.8) performed by Drake Steiner MD at [facility] PAIN MGMT MSO ALLERGIES: Lisinopril MEDICATIONS: No current facility-administered medications on file prior to encounter. Current Outpatient Medications on File Prior to Encounter Medication Sig Dispense Refill ??? dilTIAZem (TIAZAC) 120 mg Capsule,Sustained Action 24 hr TAKE ONE CAPSULE BY MOUTH EVERY DAY ??? traMADoL (Ultram) 50 mg Tablet Take 50 mg by mouth 2 times daily. ??? ibuprofen (ADVIL;MOTRIN) 200 mg Tablet Take 800 mg by mouth every 8 hours as needed for Pain. ??? multivitamin with minerals (Multivitamins with Minerals) 9 mg iron/15 mL Liquid Take 1 tablet by mouth. FAMILY HISTORY: No family history on file. SOCIAL HISTORY: Social History Socioeconomic History ??? Marital status: Spouse name: Not on file ??? Number of children: Not on file ??? Years of education: Not on file ??? Highest education level: Not on file Occupational History ??? Not on file Tobacco Use ??? Smoking status: Current Every Day Smoker Packs/day: 0.50 Types: Cigarettes ??? Smokeless tobacco: Former User Types: Chew Vaping Use ??? Vaping Use: Never used Substance and Sexual Activity ??? Alcohol use: Not on file ??? Drug use: Not on file ??? Sexual activity: Not on file Other Topics Concern ??? Not on file Social History Narrative ??? Not on file Social Determinants of Health Financial Resource Strain: ??? Difficulty of Paying Living Expenses: Not on file Food Insecurity: ??? Worried About Running Out of Food in the Last Year: Not on file ??? Ran Out of Food in the Last Year: Not on file Transportation Needs: ??? Lack of Transportation (Medical): Not on file ??? Lack of Transportation (Non-Medical): Not on file Physical Activity: ??? Days of Exercise per Week: Not on file ??? Minutes of Exercise per Session: Not on file Housing Stability: ??? Unable to Pay for Housing in the Last Year: Not on file ??? Number of Places Lived in the Last Year: Not on file ??? Unstable Housing in the Last Year: Not on file ROS: Pt denies recent fever, chills, infection, wounds, hospitalizations, ED visits, use of antibiotics.Otherwise, as described above. PHYSICAL EXAM: BP (!) 152/102 Pulse 85 Resp 21 Ht 188 cm (6' 2) Wt 117.9 kg (260 lb) SpO2 100% BMI 33.38 kg/m?? Physical Exam Constitutional: Pt oriented to person, place, and time. Appears well-developed and well-nourished. No distress. HENT: Normocephalic and atraumatic. Pulmonary/Chest: Effort normal. Neurological: Alert and oriented to person, place, and time. No cranial nerve deficit. Moves all extremities at least antigravity Skin: Skin is warm and dry. No rash noted. Not diaphoretic. Psychiatric: Normal mood and affect. RADIOLOGIC DATA: Relevant imaging reviewed LABS/DX RESULTS: Last 3 wbc, hgb, hct plt No results for input(s): WBC, HGB, HCT, PLATELET in the last 7068 hours. Last 3 Lytes No results for input(s): NA, K, CL, CO2, BUN, CREATININE in the last 7068 hours. Last 3 LFTs No results for input(s): AST, ALT, ALKPHOS, BILITOT, BILIDIR in the last 7068 hours. Last 3 Coags No results for input(s): PT, INR, PTT in the last 168 hours. Last 3 HgbA1C No results for input(s): HA1C in the last 7068 hours. ASSESSMENT: Assessment 1. Radiculopathy of lumbar region 2. Herniation of lumbar intervertebral disc with radiculopathy PLAN: Proceed with planned LESI. Addressed all questions and concerns. Risks and benefits discussed with patient. No contraindications to the procedure at this time, will proceed. Drake Steiner MD [facility] [place] [address] / documented in this encounter Miscellaneous Notes * Op Note - Drake Steiner MD - 05/28/2021 4:10 PM EDT Pain Management Operative Note Patient Name: Kosta Servin : [id number] MR#: [id number] Case Date: 05/28/2021 Surgeon: Surgeon(s) and Role: * Drake Steiner MD - Primary Present on Admission: Lumbar radiculopathy Postoperative diagnosis: Same Procedure(s) (LRB): INJECTION, EPIDURAL, LUMBAR OR SACRAL (CAUDAL), WITH IMAGING GUIDANCE (WRVU 1.8) (Left) LUMBAR INTERLAMINAR EPIDURAL STERIOID INJECTION PROCEDURE NOTE - L sided L4-5 Mr. Kosta Servin has been referred to the Pain Management Center for a lumbar epidural steroid injection by Valentin Westbrook [facility] [place] [address]. The patient complains of low back pain with pain radiating down the left leg. Mr. Servin was greeted by the nurse who verified patients name and . The patient was then taken to the fluoroscopy suite. Mr. Servin was interviewed and the medical record reviewed. There were no medical, pharmacologic, radiographic, or other structural contraindications to attempting fluoroscopically guided lumbar epidural steroid injection. Risks and potential side effects, as well as potential benefits of the procedure were reviewed with Mr. Servin. His voiced concerns were addressed. After I was assured that informed consent was obtained, the patient consent form was signed. Standard time-out procedure was performed. Mr. Servin was placed in the prone position on the fluoroscopy table and automated blood pressure cuff and pulse oximeter applied. The skin entry point for entering/approaching the L4-L5 epidural space for the lumbar epidural steroid injection was marked. Following thorough chlorhexidine preparation of the skin and draping and 1% lidocaine infiltration of the skin entry point and subcutaneous tissues, an 18 gauge Touhy needle was placed and advanced under fluoroscopic guidance and with loss of resistance technique into the L4-L5 epidural space. Needle tip placement and depth were aided and confirmed by fluoroscopy. There was no paresthesia or return of blood or CSF through the needle. 1 cc's of Omnipaque 240 was injected with clear epidural spread confirmed with fluoroscopy. Methylprednisolone 80 mg (1 ml) with Lidocaine 1% (2 ml) was injected slowly. This was followed by 1 cc of Lidocaine to flush the steroid out of the needle. There was not any unusual discomfort expressed by Mr. Servin. Mr. Servin's vital signs were stable throughout the procedure and were as recorded in nursing records. PLAN: 1. Follow up with Dr. Westbrook. Post procedure instruction was given as documented in nursing records and having met discharge criteria he was discharged from the Pain Management Center. I performed the procedure . Drake Steiner MD [facility] [place] [address] / CC: Valentin Westbrook, [facility] [place] [address] documented in this encounter Plan of Treatment Not on file documented as of this encounter Procedures Procedure Name Priority Date/Time Associated Diagnosis Comments Injection Dx/Ther Sbst Intrlmnr Lmbr/Sac W/Img Gdn (59192) 05/28/2021 4:05 PM EDT Herniation of lumbar intervertebral disc with radiculopathy INJECTION, EPIDURAL, LUMBAR OR SACRAL (CAUDAL), WITH IMAGING GUIDANCE Routine 05/28/2021 3:06 PM EDT Herniation of lumbar intervertebral disc with radiculopathy documented in this encounter Visit Diagnoses Diagnosis Radiculopathy of lumbar region- Primary Thoracic or lumbosacral neuritis or radiculitis, unspecified Radiculopathy of lumbar region Thoracic or lumbosacral neuritis or radiculitis, unspecified 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 PRN Medication Order 05/26/2021 05/27/2021 05/28/2021 iohexoL (Omnipaque) (240 mg/mL) injection solution (CANCELED) ONCE PRN, Starting on Mon05/28/21 at 1614, Until Mon05/28/21 at 1822, Intra-Operative (Intra-Procedure), Routine 1614 (Given - Provid er: Drake Steiner MD) lidocaine (pf) (Xylocaine) (10 mg/mL) 1% injection (CANCELED) ONCE PRN, Starting on Mon05/28/21 at 1614, Until Mon05/28/21 at 1822, Intra-Operative (Intra-Procedure), Routine 161 (Given - Provid er: Drake Steiner MD - Comment: Epidural) methylPREDNISolone acetate (DEPO-Medrol) (80 mg/mL) injection (CANCELED) ONCE PRN, Starting on Mon05/28/21 at 1614, Until Mon05/28/21 at 1822, Intra-Operative (Intra-Procedure), Routine 161 (Given - Provid er: Drake Steiner MD) documented in this encounter Care Teams Video Game Programmer Relationship Specialty Start Date End Date Wander Guillermo MD [address] [place] [address] PCP - General Internal Medicine 12/28/20 documented as of this encounter
--- OUTSIDE RECORDS SUMMARY | 2024-04-01 17:21 | XMS_ITS | Encounter Summary ---
Author Organization [facility] Address [address] [place] [address] Care Team Providers Care Mushroom Picker Name Role Phone Unknown, Provider Primary Care Provider [phone] Encounter Details Date Type Department Care Team (Latest Contact Info) Description 10/29/2018 18:02 EDT - 10/29/2018 23:59 EDT Hospital Encounter [address] [address] Unknown, Provider, Discharge Disposition: Home or Self Care Social History Tobacco Use Types Packs/Day Years Used Date Smoking Tobacco: Never Assessed Sex and Gender Information Value Date Recorded Sex Assigned at Not on file Gender Identity Not on file Sexual Orientation Not on file documented as of this encounter Discharge Disposition Disposition Code Departure Means Destination Home or Self [facility] documented in this encounter Plan of Treatment Not on file documented as of this encounter Visit Diagnoses Not on filedocumented in this encounter Care Teams Mushroom Picker Relationship Specialty Start Date End Date Unknown, Provider, PCP - General 06/24/15 10/31/18 documented as of this encounter
--- OUTSIDE RECORDS SUMMARY | 2024-04-01 17:21 | XMS_ITS | Clinical Summary ---
Author Organization [facility] Address [facility] [place] [address] Care Team Providers Care Indirect Fire Infantryman Name Role Phone Wander Guillermo MD Primary Care Provider [phone] Allergies Active Allergy Reactions Criticality Noted Date Comments Lisinopril Medium 12/17/2020 Other reaction(s): unknown Medications Medication Sig Dispensed Refills Start Date End Date Status ibuprofen (ADVIL;MOTRIN) 200 mg Tablet Take 800 mg by mouth every 8 hours as needed for Pain. Active multivitamin with minerals (Multivitamins with Minerals) 9 mg iron/15 mL Liquid Take 1 tablet by mouth. 12/17/2020 Active dilTIAZem (TIAZAC) 120 mg Capsule,Sustained Action 24 hr TAKE ONE CAPSULE BY MOUTH EVERY DAY 04/07/2021 Active traMADoL (Ultram) 50 mg Tablet Take 50 mg by mouth 2 times daily. 05/13/2021 Active Active Problems Problem Noted Date Diagnosed Date Radiculopathy of lumbar region 05/28/2021 HNP (herniated nucleus pulposus), lumbar 017 Social History Tobacco Use Types Packs/Day Years Used Date Smoking Tobacco: Every Day Cigarettes Smokeless Tobacco: Former Chew Sex and Gender Information Value Date Recorded Sex Assigned at Not on file Gender Identity Not on file Sexual Orientation Not on file Last Filed Vital Signs Vital Sign Reading [...] Mass Index 33.38 05/28/2021 3:10 PM EDT Plan of Treatment Health Maintenance Due Date Last Done Comments Pneumococcal Vaccine: At-Risk 5-64yrs (1 of 2 - PCV) 0 02/15/1988 HIV screen 02/15/2000 Hepatitis C Screening 02/15/2000 Lipid Screening 02/15/2000 Hepatitis B vaccine (0-59 yrs) (1) 2001 Tdap adult 2001 Tetanus vaccine 2001 Diabetes Screening (HgbA1C or Glucose) 2022 Covid-19 Vaccine (1 - 2022-24 season) 2023 Influenza (Flu) vaccine (1 o f 1 - Influenza standard series) 04/14/2024 Care Teams Indirect Fire Infantryman Relationship Specialty Start Date End Date Wander Guillermo MD [address] [place] [address] PCP - General Internal Medicine 12/28/20
--- OUTSIDE RECORDS SUMMARY | 2024-04-01 17:21 | XMS_ITS | Encounter Summary ---
Author Organization [facility] [place] [address] Care Team Providers Care Job Coach/Job Developer Name Role Phone Wander Guillermo MD Primary Care Provider [phone] Reason for Visit * Auth/Cert Specialty Diagnoses / Procedures Referred By Clare ceron Referred To Contact Diagnoses Intervertebral disc disorders with radiculopathy, lumbar region lumbar radiculopathy Procedures PRO INJECTION DX/THER SBST INTRLMNR LMBR/SAC W/IMG GDN INJECTION, EPIDURAL, LUMBAR OR SACRAL (CAUDAL), WITH IMAGING GUIDANCE (WRVU 1.8) Referral ID Status Reason Start Date Expiration Date Visits Re quested Visits Authorized [id number] 1 1 Encounter Details Date Type Department Care Team (Late st Contact Info) Description 05/28/2021 3:30 PM EDT - 05/28/2021 4:00 PM EDT [place] [id number] Drake Steiner MD [facility] [place] [address] INJECTION, EPIDURAL, LUMBAR OR SACRAL (CAUDAL), WITH IMAGING GUIDANCE (WRVU 1.8) Social History Tobacco Use Types Packs/Day Years Used Date Smoking Tobacco: Every Day Cigarettes Smokeless Tobacco: Former Chew Sex and Gender Information Value Date Recorded Sex Assigned at Not on file Gender Identity Not on file Sexual Orientation Not on file documented as of this encounter Last Filed Vital Signs Vital Sign Reading Time Taken Comments Blood Pressure 174/98 05/28/2021 3:10 PM EDT Pulse 85 05/28/2021 3:10 PM EDT Temperature - - Respiratory Rate - - Oxygen Saturation 97% 05/28/2021 3:10 PM EDT Inhaled Oxygen Concentration - - [...] 1.8) performed by Drake Steiner MD at [facility] PAIN MGMT MSO ALLERGIES: Lisinopril MEDICATIONS: No [...] [facility]ending [facility] [place] [address] / documented in this encounter Miscellaneous Notes * Op Note - Drake Steiner MD - 05/28/2021 4:10 PM EDT Pain Management Operative Note Patient Name: Kosta Servin : [id number] MR#: [id number] Case Date: 05/28/2021 Surgeon: Surgeon(s) and Role: [...] lumbar epidural steroid injection by Valentin Westbrook [facility] [place] [address]. 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, lumbar region documented in this encounter Administered Medications Inactive Administered Medications - up to 3 most recent administrations Medication Order MAR Action Action Date Dose Rate Site iohexoL (Omnipaque) (240 mg/mL) injection solution ONCE PRN, Starting on Mon05/28/21 at 1614, Until Mon05/28/21 at 1822, Intra-Operative (Intra-Procedure), Routine Given 05/28/2021 4:14 PM EDT 1 mL lidocaine (pf) (Xylocaine) (10 mg/mL) 1% injection ONCE PRN, Starting on Mon05/28/21 at 1614, Until Mon05/28/21 at 1822, Intra-Operative (Intra-Procedure), Routine Given 05/28/2021 4:14 PM EDT 1 mL methylPREDNISolone acetate (DEPO-Medrol) (80 mg/mL) injection ONCE PRN, Starting on Mon05/28/21 at 1614, Until Mon05/28/21 at 1822, Intra-Operative (Intra-Procedure), Routine Given 05/28/2021 4:14 PM EDT 80 mg documented in this encounter Active and Recently Administered Medications Times are shown in EDT. PRN Medication Order 05/26/2021 05/27/2021 05/28/2021 iohexoL (Omnipaque) (240 mg/mL) injection solution (CANCELED) ONCE PRN, Starting on Mon05/28/21 at 1614, Until Mon05/28/21 at 1822, Intra-Operative (Intra-Procedure), Routine 1613 (Given - Provid er: Drake Steiner MD) lidocaine (pf) (Xylocaine) (10 mg/mL) 1% injection (CANCELED) ONCE PRN, Starting on Mon05/28/21 at 1614, Until Mon05/28/21 at 1822, Intra-Operative (Intra-Procedure), Routine 1613 (Given - Provid er: Drake Steiner MD - Comment: Epidural) methylPREDNISolone acetate (DEPO-Medrol) (80 mg/mL) injection (CANCELED) ONCE PRN, Starting on Mon05/28/21 at 1614, Until Mon05/28/21 at 1822, Intra-Operative (Intra-Procedure), Routine 1613 (Given - Provid er: Drake Steiner MD) documented in this encounter Care Teams Job Coach/Job Developer Relationship Specialty Start Date End Date Wander Guillermo MD [address] [place] [address] PCP - General Internal Medicine 12/28/20 documented as of this encounter
--- OUTSIDE RECORDS SUMMARY | 2024-04-01 17:21 | XMS_ITS | Clinical Summary ---
Author Organization [facility] Address [address] [place] [address] Care Team Providers Care Small Boat Engineer Name Role Phone Wander Guillermo MD Primary Care Provider [phone] Social History Tobacco Use Types Packs/Day Years Used Date Smoking Tobacco: Never Assessed Interpersonal Safety Answer Date Record ed Physically Hurt Never 03/15/2020 Verbally Threaten Not on file 03/15/2020 Sex and Gender Information Value Date Recorded Sex Assigned at Not on file Gender Identity Not on file Sexual Orientation Not on file Plan of Treatment Health Maintenance Due Date Last Done Comments Hepatitis C Screen 1980 Hepatitis B Vaccine (1 of 3 - 19+ 3-dose series) 02/14 COVID-19 Vaccine ( season) 2023 Care Teams Small Boat Engineer Relationship Specialty Start Date End Date Wander Guillermo MD [address] [place], [place] [id number] PCP - General 11/01/18
--- OUTSIDE RECORDS SUMMARY | 2024-04-01 17:21 | XMS_ITS | Encounter Summary ---
Author Organization [facility] Address [facility] [place] [address] Care Team Providers Care Host/Hostess Restaurant Name Role Phone Filomena Huber MD Primary Care Provider [phone] Reason for Visit * Reason Comments Back Pain Right Leg Pain Encounter Details Date Type Department Care Team (Late st Contact Info) Description 11/10/2016 10:20 AM EDT Office [place] [address] Emery Bowling MD [facility] [place] [address] HNP (herniated nucleus pulposus), lumbar Social History Tobacco Use Types Packs/Day Years Used Date Smoking Tobacco: Every Day Cigarettes Smokeless Tobacco: Former Chew Sex and Gender Information Value Date Recorded Sex Assigned at Not on file Gender Identity Not on file Sexual Orientation Not on file documented as of this encounter Last Filed Vital Signs Vital Sign Reading Time Taken Comments Blood Pressure 168/95 11/10/2016 10:08 AM EDT Pulse - - Temperature - - Respiratory Rate - - Oxygen Saturation - - Inhaled Oxygen Concentration - - Weight 122.5 kg (270 lb) 11/10/2016 10:08 AM EDT Height 188 cm (6' 2) 11/10/2016 10:08 AM EDT Body Mass Index 34.67 11/10/2016 10:08 AM EDT documented in this encounter Progress Notes * Emery Bowling MD - 11/10/2016 10:20 AM EDT CHIEF COMPLAINT: Right lower extremity pain greater than low back pain. HISTORY OF PRESENT ILLNESS: Mr. Servin is a 36-year-old male I am seeing in consultation for Dr. Huber in regards to his back pain that radiates to his right buttock, right posterolateral thigh, and right lateral leg. It is associated with some numbness throughout the right foot and gets the sense that the right foot and ankle are weak. He occasionally gets some pain in the left lower extremity. The pain is worse with standing and walking and improves if he sits down. He has had back pain for many years and was consideringsurgery for an L4-S1 disk herniation about 10 years ago, however, those symptoms improved and he avoided surgery. His most recent set of symptoms began approximately 4 months ago in July. 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 The pain tends to keep him up at night. He denies constitutional symptoms. He notes some urinary urgency but no incontinence. He denies any numbness in his groin. He was taking gabapentin without much relief. He takes ibuprofen that gives him some partial relief. He has tried physical therapy and chiropractic manipulation in the past without much relief. He has had epidural steroid injections in the past with no relief. He has never had prior spinal surgery. PAST MEDICAL HISTORY: None. PAST SURGICAL HISTORY: None. FAMILY HISTORY: Diabetes. 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 He smokes 1 pack per day and drinks 6-12 drinks per night. REVIEW OF SYSTEMS: All negative except musculoskeletal as above. PHYSICAL EXAM: Patient is 6 feet 2 inches, 220 pounds with a BMI of 34.7. General: The patient is comfortable, in no acute distress. Back: His back is nontender to palpation. He can flex 30 degrees and extend 10 degrees. Neurologic exam: He walks with a normal gait. He can heel walk and toe walk. Motor exam reveals 4/5 strength in his right EHL and right peroneals. He has decreased sensation throughout his entire right foot. Reflexes are 2/4 at the knees and ankles and symmetric. He has a positive straight leg raise on the right. Straight leg raise on the left causes him right lower extremity pain. He has no clonus. Babinski is negative. Hip exam: He has normal, painless range of motion of both hips. Vascular exam: He has palpable pulses bilaterally. IMAGING: AP and lateral/flexion x-rays of the lumbar spine demonstrated a sciatic list to the left. The lateral views demonstrate marked degenerative changes at L5-S1 with no instability or spondylolisthesis. MRI of the lumbar spine from 11/07/16 demonstrates degenerative changes from L3 through the sacrum that are most pronounced at L5-S1 where there is near complete loss of disk height. At L3-L4, he has a broad-based, mild disk bulge not causing any nerve compression. At L4-L5, he has a large central and paracentral disk herniation compressing the entire thecal sac and causing severe narrowing of the right lateral recess. ASSESSMENT/PLAN: Mr. Servin is a 36-year-old male who presents with about 4 weeks of right L5 radiculopathy in the setting of a large central and right paracentral L4-L5 disk herniation. We discussed treatment options for this that include antiinflammatory medication, physical therapy, epidural steroid injection, and surgery. He is not sure how he wants to proceed. I gave him the link to the [employer] reports calculator study so he could run through that and see his predicted outcomes with surgery and nonoperative treatment. Surgery in his case would most likely involve a midline laminectomy with a bilateral diskectomy. He is going to think things over and will let us know how he wants to proceed. If he wants to proceed with an injection, I would recommend right L4-L5 transforaminal injection that can be done in the Pain Clinic. If he wants to discuss surgery, he should return to see me. He would need no further imaging. documented in this encounter Plan of Treatment Not on file documented as of this encounter Visit Diagnoses Diagnosis HNP (herniated nucleus pulposus), lumbar Displacement of lumbar intervertebral disc without myelopathy documented in this encounter Care Teams Host/Hostess Restaurant Relationship Specialty Start Date End Date Filomena Huber MD [address] [place] [id number] PCP - General 07/06/10 12/27/20 documented as of this encounter
--- OUTSIDE RECORDS SUMMARY | 2024-04-01 17:21 | XMS_ITS | Encounter Summary ---
Author Organization [facility] [place] [address] Care Team Providers Care Shipping And Receiving Material Handler Name Role Phone Wander Guillermo MD Primary Care Provider [phone] Encounter Details Date Type Department Care Team (Late st Contact Info) Description 05/27/2021 Telephone [facility] [place] [phone] Nina Torrez, RN Social History Tobacco Use Types Packs/Day Years Used Date Smoking Tobacco: Every Day Cigarettes Smokeless Tobacco: Former Chew Sex and Gender Information Value Date Recorded Sex Assigned at Not on file Gender Identity Not on file Sexual Orientation Not on file documented as of this encounter Miscellaneous Notes * Telephone Encounter - Nina Torrez, RN - 05/27/2021 9:58 AM EDT Contact made with patient or manufacturers representative as identified in contacts 1. Patient instructed to arrive at 15:00 on 05/28/21 with their driver license technician for their LESI procedure. Please plan to spend about 2 hours at the center. (3 hours for RFA) 2. Has pt started any new medications or supplements in the past two weeks? No 3. Have any of the following occurred within the two weeks before the procedure date? a. Patient is having a Covid vaccine or other vaccine No b. Patient has been exposed to anybody with a contagious illness such as Covid, flu, No c. Patient is taking antibiotics to treat an infection No d. Patient has any skin rashes, breakdown, blisters or open wounds No e. Patient has had any hospitalizations, ED visits, surgery, other procedure, dental procedure No f. Patient has taken oral steroids or had a steroid injection No g. Does patient have any of the following symptoms that are NEW and NOT explained by another healthcondition: fever or chills, cough, shortness of breath or difficulty breathing, fatigue, muscle or body aches, headache, new loss of taste or smell, sore throat, congestion or runny nose, nausea or vo miting, diarrhea. No If yes, the patient has been directed to the covid hotline for testing prior to their procedure. (route telephone note to: [facility] Public Health covid 19 nurse triage with routing comment stating pt needs covid test prior to procedure and give date of procedure, add name and MRN to tracking tool). h. Has the patient's pain resolved or significantly improved such as a rating of 3/10 or less? No 4. Was patient instructed to stop any medications? No if yes: a. Name of medication(s): b. Confirm date of last dose: 5. Is patient having a nerve block: No a. If yes instructed to not take any pain medication for 12 hours before your procedure. 6. Patient instructed to take any prescribed medications that they were not told to stop, especially blood pressure medication, because their procedure may be cancelled if their blood pressure is toohigh. 7. Was patient instructed to follow NPO guidelines: No if yes, the following instructions were reviewed: a. You may eat up to 6 hours before your procedure b. You may have clear liquids only up to 2 hours before your procedure: water, apple juice, natividad alaina, sprite, popsicles, broth, tea or coffee plain or with sweetener, absolutely no dairy products, no milk including soy, oat, almond. 8. IF RFA: Does patient have a pacemaker? No a. If yes, document that cardiology was called and notified. 9. Additional notes if applicable: Patient expressed understanding and agreement with instructions Yes Patient denies further questions Yes documented in this encounter Plan of Treatment Not on file documented as of this encounter Visit Diagnoses Not on filedocumented in this encounter Care Teams Shipping And Receiving Material Handler Relationship Specialty Start Date End Date Wander Guillermo MD [address] [place] [id number] PCP - General Internal Medicine 12/28/20 documented as of this encounter
--- OUTSIDE RECORDS SUMMARY | 2024-04-01 17:21 | XMS_ITS | Encounter Summary ---
[place] [address] Care Team Providers Care Public Health Registrar Name Role Phone Wander Guillermo MD Primary Care Provider [phone] Reason for Referral * Diagnostic Test (Routine) - Closed Specialty Diagnoses / Procedures Referred By Contac t Referred To Contact Radiology Diagnoses Back pain, unspecified back location, unspecified back pain laterality, unspecified chronicity Procedures MRI Lumbar Spine wo Contrast (Generic) Wander Guillermo MD [address] [place] [id number] [place] [address] Referral ID Status Reason Start Date Expiration Date V isits Requested Visits Authorized [id number] Closed Specialty Service Requested 03/09/2021 05/07/2021 1 1 Reason for Visit * Diagnostic Test (Routine) - Closed Specialty Diagnoses / Procedures Referred By Contac t Referred To Contact Radiology Diagnoses Back pain, unspecified back location, unspecified back pain laterality, unspecified chronicity Procedures MRI Lumbar Spine wo Contrast (Generic) Wander Guillermo MD [address] [place] [address] [place] [address] Referral ID Status Reason Start Date Expiration Date V isits Requested Visits Authorized [id number] Closed Specialty Service Requested 03/09/2021 05/07/2021 1 1 Encounter Details Date Type Department Care Team (Latest Contact Info) Description 04/10/2021 1:48 PM EDT - 04/10/2021 11:59 PM EDT Hospital [place] [address] Wander Guillermo MD [address] [place] [address] Back pain, unspecified back location, unspecified back pain laterality, unspecified chronicity Discharge Disposition: Home Social History Tobacco Use [...] ONE CAPSULE BY MOUTH EVERY DAY 04/07/2021 ibuprofen (ADVIL;MOTRIN) 200 mg Tablet Take 800 mg by mouth every 8 hours as needed for Pain. gabapentin (NEURONTIN) 300 mg Capsule Take 3 capsules by mouth 3 times daily. 0 10/24/2016 05/14/2021 documented as of this encounter Plan of Treatment Not on file documented as of this encounter Procedures Procedure Name Priority Date/Time Associated Diagnosis Comments MRI LUMBAR SPINE WITHOUT CONTRAST Routine 04/10/2021 2:42 PM EDT Back pain, unspecified back location, unspecified back pain laterality, unspecified chronicity documented in this encounter Results * MRI Lumbar Spine wo Contrast (Generic) (04/10/2021 2:42 PM EDT) Anatomical Region Laterality Modality L-spine Magnetic Resonan ce Impressions 04/10/2021 3:52 PM EDT Disc extrusion at L2-3 centrally. Disc protrusion at L3-4 left central and paracentral with moderate stenosis Central disc protrusion at L4-L5. Left paracentral disc protrusion at L5-S1 Comment: The following findings are so common in people without low back pain that while we report their presence, they must be interpreted with caution and in context of the clinical situation (Reference- Jarvik Et Al, Spine 2001). Findings: (Prevalence in patients without low back pain), disc degeneration (decreased T2 signal, height loss, bulge) (91%), disc T2-signal loss (83%), disc height loss (56%), disc bulge (64%), disc protrusion (32%), annular fissure (38%). Thank you for letting us participate in the care of this patient. ??If you are a health care provider and have any questions regarding this report, please contact the number below. ??For patients who have questions please contact the health manager critical care unit that requested your imaging first. ? Electronically signed by: Gómez Agarwal MD, [facility] ([phone]), at 04/10/2021 3:52 PM Narrative 04/10/2021 3:52 PM EDT EXAMINATION: MRI LUMBAR SPINE WO CONTRAST (GENERIC) CLINICAL HISTORY: back pain, lumbar, with radiculopathy TECHNIQUE: MRI of the lumbar spine performed without intravenous contrast administration. COMPARISON: Plain radiographs performed November 10, 2016 FINDINGS: Other than degenerative changes marrow signal intensity is normal. No neoplastic process is identified. The retroperitoneum shows no mass or aneurysm. Bilobed T2 hyperintensity seen in the medial parapelvic region of the right kidney likely represents parapelvic cysts Degenerative changes are seen throughout the lumbar spine. The T12-L1 level is normal. The L1-L2 level is normal. L2-L3 is remarkable for a central disc extrusion with migration superiorly approximately 2 cm. This extrusion indents the thecal sac but I do not see convincing evidence of impingement on neural elements. There is no significant spinal stenosis. The intervertebral foramina are patent. L3-L4 demonstrates a central and left paracentral extrusion of disc which indents the ventral thecal sac more so on the left than on the right and may result in impingement on the traversing nerve roots. The exiting L3 nerve roots are unaffected. Mild hypertrophic facet disease is seen. Degenerative changes result in moderate spinal stenosis at this level. L4-L5 shows a central moderate protrusion of disc material. It narrows the left subarticular zone and foramen but does not affect the extraforaminal zone. The right subarticular, foraminal and extraforaminal zones appear normal. There is disc protrusion does impinge on the ventral thecal sac but results in only minimal stenosis. Facet joints appear normal. L5-S1 demonstrates a left paracentral protrusion of disc material which extends into the left subarticular zone. Left subarticular and foraminal zones are narrowed while the extraforaminal zone is normal. The right subarticular zone, foraminal and foraminal zones are normal in appearance. The disc protrusion appears to likely impingement on the traversing S1 nerve root but probably does not impinge on the exiting L5 nerve root. Procedure Note Gómez Agarwal MD - 04/10/2021 EXAMINATION: MRI LUMBAR SPINE WO CONTRAST (GENERIC) CLINICAL HISTORY: back pain, lumbar, with radiculopathy TECHNIQUE: MRI of the lumbar spine performed without intravenous contrastadministration. COMPARISON: Plain radiographs performed November 10, 2016 FINDINGS: Other than degenerative changes marrow signal intensity is normal. Noneoplastic process is identified. The retroperitoneum shows no mass or aneurysm. Bilobed T2 hyperintensityseen in the medial parapelvic region of the right kidney likely representsparapelvic cysts Degenerative changes are seen throughout the lumbar spine. The T12-L1 level is normal. The L1-L2 level is normal. L2-L3 is remarkablefor a central disc extrusion with migration superiorly approximately 2 cm.This extrusion indents the thecal sac but I do not see convincing evidence of impingement on neural elements. There is no significant spinal stenosis.The intervertebral foramina are patent. L3-L4 demonstrates a central and left paracentral extrusion of discwhich indents the ventral thecal sac more so on the left than on the right andmay result in impingement on the traversing nerve roots. The exiting L3 nerveroots are unaffected. Mild hypertrophic facet disease is seen. Degenerativechanges result in moderate spinal stenosis at this level. L4-L5 shows a central moderate protrusion of disc material. It narrows theleft subarticular zone and foramen but does not affect the extraforaminal zone.The right subarticular, foraminal and extraforaminal zones appear normal.There is disc protrusion does impinge on the ventral thecal sac but results inonly minimal stenosis. Facet joints appear normal. L5-S1 demonstrates a left paracentral protrusion of disc material whichextends into the left subarticular zone. Left subarticular and foraminal zonesare narrowed while the extraforaminal zone is normal. The right subarticularzone, foraminal and foraminal zones are normal in appearance. The discprotrusion appears to likely impingement on the traversing S1 nerve root but probablydoes not impinge on the exiting L5 nerve root. IMPRESSION Disc extrusion at L2-3 centrally. Disc protrusion at L3-4 left central and paracentral with moderatestenosis Central disc protrusion at L4-L5. Left paracentral disc protrusion at L5-S1 Comment: The following findings are so common in people without low backpain that while we report their presence, they must be interpreted with cautionand in context of the clinical situation (Reference- Yasmeenvik Et Al, [id number]). Findings: (Prevalence in patients without low back pain), discdegeneration (decreased T2 signal, height loss, bulge) (91%), disc T2-signal loss(83%), disc height loss (56%), disc bulge (64%), disc protrusion (32%), annularfissure (38%). Thank you for letting us participate in the care of this patient. If youare a health care provider and have any questions regarding this report,please contact the number below. For patients who have questions please contactthe health manager critical care unit that requested your imaging first. Electronically signed by: Gómez Agarwal MD, [facility]([phone]), at 04/10/2021 3:52 PM Wander Guillermo MD IMG MRI ORDERABLES documented in this encounter Visit Diagnoses Diagnosis Back pain, unspecified back location, unspecified back pain laterality, unspecified chronicity documented in this encounter Care Teams Public Health Registrar Relationship Specialty Start Date End Date Wander Guillermo MD [address] [place] [address] PCP - General Internal Medicine 12/28/20 documented as of this encounter
--- OUTSIDE RECORDS SUMMARY | 2024-04-01 17:21 | XMS_ITS | Encounter Summary ---
Author Organization [facility] Address [address] [place] [address] Care Team Providers Care Agricultural Equipment Sales Manager Name Role Phone Unknown, Provider Primary Care Provider [phone] Encounter Details Date Type Department Care Team (Late st Contact Info) Description 10/29/2018 Results Only [facility] [phone] Mojgan Low MD [address] [place] [address] [address] [place], [place] [id number] Social History Tobacco Use Types Packs/Day Years Used Date Smoking Tobacco: Never Assessed Sex and Gender Information Value Date Recorded Sex Assigned at Not on file Gender Identity Not on file Sexual Orientation Not on file documented as of this encounter Plan of Treatment Not on file documented as of this encounter Procedures Procedure Name Priority Date/Time Associated Diagnosis Comments SURGICAL PATHOLOGY Routine 10/29/2018 9:58 EDT documented in this encounter Results * SURGICAL PATHOLOGY (10/29/2018 9:58 EDT) Pathology Report: SURGICAL PATHOLOGY REPORT Reports generated via electronic interface contain original data; however they are lacking the format of the original report. Caution should be taken when reading/interpretin g unformatted reports. Name: ? KOSTA ALY ? Accession #: ? [id number] ? : ? 1980 (Age: 38) ??M ? Collect Date: ? 10/29/2018 ? Location: ? [facility] ? Receive Date: ? 10/30/2018 ? Provider: MOJGAN LOW MD Copy to: MARIA DE JESUS ARAUJO MD ? Final Pathologic Diagnosis: A. SMALL INTESTINE, DUODENUM, BIOPSIES: - Benign duodenal mucosa showing no specific pathologic features. - There is no intraepithelial lymphocytosis or villous blunting. B. STOMACH, ANTRUM, BIOPSY: - Oxyntic mucosa showing no specific pathologic features. C. ESOPHAGUS, GASTROESOPHAGEAL JUNCTION, BIOPSIES: - Squamocolumnar mucosal tissue showing changes of reflux esophagitis. - Negative for intestinal metaplasia, negative for dysplasia. D. COLON, DESCENDING AND SIGMOID, BIOPSIES: - Colonic mucosa showing features consistent with lymphocytic colitis. E. COLON, RECTUM, BIOPSIES: - Rectal mucosa showing features consistent with lymphocytic proctitis. Document reviewed and electronically signed by: ARAM SANTANA MD Report ??Date: 11/03/2018 13:11 By the signature above, the attending physician certifies that he/she has personally conducted a gross and/or microscopic examination of the described specimens and rendered or confirmed the above diagnosis. Specimen(s) Received: A. ??Small bowel duodenum bxs B. ??Antrum bxs C. ??GE junction bxs D. ??Descending and sigmoid colon bxs E. ??Rectum bx Clinical History: GERD, chronic diarrhea (greater than 10 BMs per day); A. R/O celiac; D, E. R/O colitis Gross Description: A. ?Received in formalin labelled with proper patient identification (initials R, J) and small bowel duodenum biopsies are seven pink-power tissues (0.1 x 0.1 x 0.1 cm to 0.5 x 0.3 x 0.2 cm). Entirely submitted in A1 and A2. B. ?Received in formalin labelled with proper patient identification (initials R, J) and antrum biopsy are three pink-power tissues (0.1 x 0.1 x 0.1 cm, 0.1 x 0.1 x 0.1 cm, and 0.7 x 0.2 x 0.1 cm). Entirely submitted in B1. C. ?Received in formalin labelled with proper patient identification (initials R, J) and GE junction biopsies are four power-white tissues (0.2 x 0.1 x 0.1 cm to 0.4 x 0.3 x 0.2 cm). Entirely submitted in C1. D. ?Received in formalin labelled with proper patient identification (initials R, J) and descending and sigmoid colon biopsies are 14 pink-power tissues (0.2 x 0.2 x 0.1 cm to 0.7 x 0.2 x 0.1 cm). Entirely submitted in D1 to D4. E. ?Received in formalin labelled with proper patient identification (initials R, J) and rectal biopsies are four pink-power tissues (0.1 x 0.1 x 0.1 cm to 0.3 x 0.2 x 0.1 cm). Entirely submitted in E1. CLIFF Lamas (ASCP) 10/30/2018 11:06 AM End of Report [facility] 10/29/2018 9:58 EDT 10/30/2018 9:58 EDT Mojgan Low MD PATHOLOGY ORDERA [facility] Organization Address City/State/[facility] Co de Phone Number [facility] [address] [place] [address] documented in this encounter Visit Diagnoses Not on filedocumented in this encounter Care Teams Agricultural Equipment Sales Manager Relationship Specialty Start Date End Date Unknown, Provider, PCP - General 06/24/15 10/31/18 documented as of this encounter
--- OUTSIDE RECORDS SUMMARY | 2024-04-01 17:21 | XMS_ITS | Encounter Summary ---
Author Organization [facility] Address [address] [place] [address] Care Team Providers Care Software Analyst Name Role Phone Wander Guillermo MD Primary Care Provider [phone] Encounter Details Date Type Department Care Team (Late st Contact Info) Description 08/09/2021 Lab Requisition [facility] Pathology & Laboratory Medicine - [facility] [address] [place] [address] Jesus Chase, [address] [place] [place] [address] Encounter for other general examination Social History Tobacco Use Types Packs/Day Years [...] Priority Date/Time Associated Diagnosis Comments SURGICAL PATHOLOGY Today 08/06/2021 12 :30 EST Encounter for other general examination documented in this encounter Results * SURGICAL PATHOLOGY (08/06/2021 12:30 EST) Note to Patient The following pathology results have been interpreted by your pathologist and may be available to you before your health provider has had the opportunity to review them. Please allow time for your provider to receive these results and explore management options, if applicable. 08/10/2021 10:56 EST [facility] Final Diagnosis A. SKIN OF BACK, RIGHT LOWER, SHAVE BIOPSY: - Prurigo nodularis. 08/10/2021 10:56 [facility] Attestation By the signature below, the attending physician certifies that they have 1) personally conducted a gross and/or microscopic examination of the described specimen(s), and/or personally interpreted the results of laboratory testing of the described specimen(s), and 2) personally rendered or confirmed the above diagnosis. 08/10/2021 10:56 [facility] at 1055 Clinical History Skin lesion 08/10/2021 10:56 [facility] Gross Description A. Received in formalin labelled with proper patient identification (initials R, J) and R lower back is a 0.8 x 0.6 x 0.1 cm ovoid shave of friable, granular power-white skin. The margin is inked. The specimen is trisected and entirely submitted in A1. CLIFF ANGULO(ASCP) 08/09/2021 17:16 08/10/2021 10:56 [facility] Performing Lab [facility] 08/10/2021 10:56 [facility] Scanned Images 08/10/2021 10:56 [facility] Tissue TISSUE SPECIMEN FROM SKIN / Unknown 08/06/2021 12:30 EST 08/09/2021 16:03 EST Jesus Baez [facility] ORDERAB LES [facility] [address] [place] [address] documented in this encounter Visit Diagnoses Diagnosis Encounter for other general examination documented in this encounter Care Teams Software Analyst Relationship Specialty Start Date End Date Wander Guillermo MD [address] [place] [address] PCP - General 11/01/18 documented as of this encounter
--- OUTSIDE RECORDS SUMMARY | 2024-04-01 17:21 | XMS_ITS | Encounter Summary ---
[place] [address] Care Team Providers Care Contact Center Specialist Name Role Phone Wander Guillermo MD Primary Care Provider [phone] Reason for Referral * Consultation (Routine) - Closed Specialty Diagnoses / Procedures Referred By Clare ceron Referred To [facility] Diagnoses Herniation of lumbar intervertebral disc with radiculopathy Valentin Westbrook DO [address] [place] [address] [facility] [place] [address] Referral ID Status Reason Start Date Expiration Date V isits Requested Visits Authorized [id number] Closed Consult, Test & Treat 05/14/2021 05/14/2022 1 1 Reason for Visit * Reason Comments Back Pain lower back Left Leg Pain into the groin and d own leg/in hebert area * Consultation (Routine) - Closed Specialty Diagnoses / Procedures Referred By Clare ceron Referred To [facility] Diagnoses Other intervertebral disc displacement, lumbar region Radiculopathy, lumbar region Other chronic pain Lumbar radiculopathy/ disc herniation/ MRI 04/10/21 in eD Wander Guillermo MD [address] [place] [address] [facility] [place] [address] Referral ID Status Reason Start Date Expiration Date V isits Requested Visits Authorized [id number] Closed Consult, Test & Treat [facility] PCP Updated and/or Approved 04/13/2021 04/13/2022 12 12 Encounter Details Date Type Department Care Team (Late st Contact Info) Description 05/14/2021 3:00 PM EDT Office Visit [facility] [place] [address] Valentin Westbrook DO [address] [place] [address] Herniation of lumbar intervertebral disc with radiculopathy Social History Tobacco Use Types Packs/Day Years Used Date Smoking Tobacco: Every Day Cigarettes Smokeless Tobacco: Former Chew Sex and Gender Information Value Date Recorded Sex Assigned at Not on file Gender Identity Not on file Sexual Orientation Not on file documented as of this encounter Last Filed Vital Signs Vital Sign Reading Time Taken Comments Blood Pressure 145/98 05/14/2021 2:55 PM EDT Pulse 83 05/14/2021 2:55 PM EDT Temperature - - Respiratory Rate - - Oxygen Saturation - - Inhaled Oxygen Concentration - - Weight 117.9 kg (260 lb) 05/14/2021 2:55 PM EDT Height 188 cm (6' 2) 05/14/2021 2:55 PM EDT Body Mass Index 33.38 05/14/2021 2:55 PM EDT documented in this encounter Progress Notes * Valentin Westbrook DO - 05/14/2021 3:00 PM EDT [facility] Initial Consultation Note DOS: 05/13/21 : 1980 Kosta Servin is a 41 y.o. year old male with a PMH including lumbar disc herniation, hypertension who presents to the pain clinic today at the referral of Wander Guillermo MD [address] [place] [address] for consultation regarding low back pain. CC: No chief complaint on file. HPI: Kosta Servin prefers to be called Kosta. Kosta reports a long history of chronic intermittent back problems. He first injured his back about 14 or 15 years ago and was told that he might need surgery at that time. He eventually improved with conservative care. Is been intermittent problem thatflared up significantly 2016 at which point he had seen Dr. Bowling again he improved with conservative care. Since 2017 he has had intermittent mild low back pain. He had an acute exacerbation of low back pain starting in December of this year. On December 15. He was pushing a heavy radiator onto a kashif andhad acute pain in left side of his low back. This was relatively mild he kept working he woke up the next day with severe pain in the left side of his low back traveling down his left buttock posterior thigh and wrapping around onto the anterior left lower leg. This pain was quite severe for about 2 weeks. It subsequently did calm down to a more functional level. He was able to get back to work. Since that time however he is continued to have the symptoms the pain in the low back is a stabbing type discomfort. He frequently gets a numbness tingling sensation in the above- described leg distribution. Symptoms are aggravated with standing, bending twisting lifting are provocative repetitive activities are provocative. 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 He is able to get in certain positions that do relieve his pain. The tramadol he has been taking also seems to help. He has tried numerous topical medications without benefit. He does have some intermittent weakness in the leg and and numbness though this will resolve once he is up and moving. Getting up in the morning he is quite uncomfortable till he gets moving. Denies any bowel or flakita dder dysfunction, no saddle paresthesias, no history of fevers, chills or night sweats. No history of cancer. No drug use. No history of inflammatory arthropathy. Pain Description: Duration - pt had acute low back pain and radiculopathy in 2016, which subsquently improved. Had injury december 15 pushing radiator Location - left low back with radiation down anterior thigh into groin and post thigh into anteriorlower leg - to lesser degree right low back Quality - sharp, aching Weakness - intermittent weakness Numbness/Tingling - intermittent with standing Pain score: 4/10 today,6-7 /10 at worst, 0/10 at best, 5/10 on average (all in past week) Alleviating factors: sleeping on right side with knees flexed Aggravating factors: standing, lifting, repetitive activities, sitting in excavator/dozer on uneventerrain Prior Treatments/Medications (Per prior notes and patient): Medications : Topicals - bassam machuca, lidocaine patch, cBD NSAIDs - Advil Acetaminophen - no help Antidepressants - non Antieptileptics - gabapentin tried in past Muscle Relaxants - Opioids - tramadol Steroids - none PT: none Modalities: ice and heat Surgery: none Injections: 1 epidural in [facility] 14-15yrs ago -> no help Chiropractic: had tried Acupuncture: none Mental Health: none ROS: Constitutional: No unintentional weight loss or gain, fevers, chills, or night sweats. HENT: No recent hearing changes. No difficulty swallowing. Eyes: No recent vision changes. Respiratory: No cough or shortness of breath. Cardiovascular: No chest pain or syncope. GI: No diarrhea, nausea, vomiting, or constipation. : No dysuria, hesitancy, or urgency. No incontinence. Musculoskeletal: No muscle weakness. Skin: No rashes or lesions. Neurologic: No numbness/tingling. No difficulty with balance. Psychiatric: Mood ok. No SI/HI. Sleep is good. Heme/Lymph/Imm: No easy bleeding or brusing. PMH/PSH: Patient Active Problem List Diagnosis Code ??? HNP (herniated nucleus pulposus), lumbar M51.26 No past medical history on file. No past surgical history on file. FAMILY HISTORY: No family history on file. SOCIAL HISTORY: Tobacco : 1/2ppd Alcohol : mod. 2-3beer/day Recreational drug use : none Work : Works for [employer] Home : has 2 kids Hobbies : fishing, hunting, spending time with kids FUNCTIONAL STATUS: Independent in all ADLs. MEDICATIONS: Current Outpatient Medications: ??? gabapentin (NEURONTIN) 300 mg Capsule, Take 3 capsules by mouth 3 times daily., Disp: , Rfl: 0 ??? ibuprofen (ADVIL;MOTRIN) 200 mg Tablet, Take 1,200 mg by mouth every 6 hours as needed for Pain., Disp: , Rfl: ALLERGIES: No Known Allergies PHYSICAL EXAM: BP (!) 145/98 Pulse 83 Ht 188 cm (6' 2) Wt 117.9 kg (260 lb) BMI 33.38 kg/m?? General: Patient is seated comfortably in NAD, well-groomed. HEENT: Head atraumatic, EOMI. Respiratory: Breathing comfortably on RA. Cardiovascular: 2+ peripheral pulses, no swelling Abdominal: non-distended, non-tender to palpation Skin: No appreciable rashes or skin breakdown Psych: Appropriate affect, A&Ox3 , answers questions appropriately Musculoskeletal: Inspection - No gross appendicular or axial deformities Palpation -no midline or paraspinal tenderness in the thoracic spine, mild midline and left paraspinal muscle tenderness in the lumbar. No tenderness at the PSIS/SI joint. No tenderness over the lateral anterior hips ROM -slightly restricted forward flexion, extension and side bending Special tests - SLR b/l -positive left side Slump test -positive left side Facet joint loading (Kemps) -negative JOSE -negative bilateral FADIR -negative bilateral Stinchfield -negative bilateral Gaenslen's -negative bilateral Colt's Finger -negative Neurologic: shaft repairer - grossly intact Reflexes - 2/4 and symmetric in bilateral biceps, triceps, brachioradiali, 2/4 patellae, and Achilles. No ankle clonus. Babinkski downgoing bilaterally, Neg. Holloway Motor - 5/5 upper extremity bilateral including shoulder abduction/adduction, elbow flexion/extension, wrist flexion/extension, barrel washer strength, finger abduction, thumb to index opposition 5/5 bilateral lower extremity strength including hip flexion/extension, knee flexion/extension, plantar and dorsiflexion of the ankles and great toes Sensation - Intact to light touch throughout all four extremities Gait/Station: Normal gait. No loss of balance noted. Transitions from exam room chair to table without difficulty. Able to stand on heels and toes, able to perform a squat. TESTS/IMAGING: Lumbar MRI 04/10/21 EXAMINATION: MRI LUMBAR SPINE WO CONTRAST (GENERIC) ?? CLINICAL HISTORY: back pain, lumbar, with radiculopathy ? TECHNIQUE: MRI of the lumbar spine performed without intravenous contrast administration. ?? COMPARISON: Plain radiographs performed November 10, 2016 ?? FINDINGS: Other than degenerative changes marrow signal intensity is normal. No neoplastic process is identified. ?? The retroperitoneum shows no mass or aneurysm. Bilobed T2 hyperintensity seen in the medial parapelvic region of the right kidney likely represents parapelvic cysts ? Degenerative changes are seen throughout the lumbar spine. ?? The T12-L1 level is normal. The L1-L2 level is normal. L2-L3 is remarkable for a central disc extrusion with migration superiorly approximately 2 cm. This extrusion indents the thecal sac but I do not see convincing evidence of impingement on neural elements. There is no significant spinal stenosis. The intervertebral foramina are patent. ?? L3-L4 demonstrates a central and left paracentral extrusion of disc which indents the ventral thecal sac more so on the left than on the right and may result in impingement on the traversing nerve roots. The exiting L3 nerve roots are unaffected. Mild hypertrophic facet disease is seen. Degenerative changes result in moderate spinal stenosis at this level. ?? L4-L5 shows a central moderate protrusion of disc material. It narrows the left subarticular zone and foramen but does not affect the extraforaminal zone. The right subarticular, foraminal and extraforaminal zones appear normal. There is disc protrusion does impinge on the ventral thecal sac but results in only minimal stenosis. Facet joints appear normal. ?? L5-S1 demonstrates a left paracentral protrusion of [...] impinge on the exiting L5 nerve root. ? IMPRESSION Disc extrusion at L2-3 centrally. ?? Disc protrusion at L3-4 left central and paracentral with moderate stenosis ?? Central disc protrusion at L4-L5. ?? Left paracentral disc protrusion at L5-S1 ?? A/P: Encounter Diagnosis Name Primary? Herniation of lumbar intervertebral disc with radiculopathy Impression: 41-year-old male with history of hypertension, chronic low back pain presenting today for ongoing low back pain with associated left lower extremity pain and dysesthesias. #1: Chronic low back pain with left lower extremity pain and dysesthesias. Suspect symptoms are related to L3-4 disc extrusion in the setting of underlying spondylosis with resultant left lower extremity radicular pain. Patient's MRI demonstrates multilevel spondylosis. He has a large left L3-4 disc herniation with likely impingement on the transiting nerve roots. He also has a disc herniation atL5-S1 which may be impinging on the S1 nerve root. His symptoms seem to involve the L4 and L5 distribution. There are no acute red flag symptoms identified. He has a reassuring neurological examination. Plan: Diagnosis reviewed, treatment option addressed, and risk/benefits discussed. Self-care instructionsgiven. I am recommending a multidisciplinary treatment plan to help this patient better manage her pain. 1. Physical Therapy: Recommended trial physical therapy to the patient. Unfortunately given his very challenging work schedule with frequent travel he does not feel like this would be a possibility for him. I provided him a copy of Faustino Trujillo Treat Your Own Back book. Recommended trying gait exercises as described above. 2. Clinical Health Psychologist to address issues of relaxation, behavioral change, coping style, and other factors important to improvement: Not at this time 3. Self Care Recommendations: Recommended regular low impact prevascular exercise. Recommended in the long run working on weight loss and quitting smoking. 4. Diagnostic Studies: No additional diagnostic studies at this time 5. Medication Management: Patient is currently on a combination of ibuprofen and tramadol as prescribed by his primary care provider. No additional medication recommendations at this time. I did discuss with him that long-term treatment for chronic back pain with opioids would likely be unhelpful. 6. Further procedures recommended: Patient is interested in interventional pain procedures. given his persistent pain despite activity modification prescribed medications now for close to 6 months I think a trial of a lumbar epidural steroid injection would be reasonable. We will plan to be orderedtoday. We will consider an L3-4 versus L4-5 interlaminar epidural steroid injection would defer to proceduralist. Discussed risk of procedure with patient. The patient is currently taking ibuprofen. Though per FRED guidelines he is not required to stop this I did discuss that it may be safer to stop this medication 24 hours prior to injection. 7. Referrals: Patient is also interested in discussing his case with a spine surgeon. We will referhim to one of the spine surgeons here. 8. Release of information: We will send notes to referring provider. 9. Follow up: Patient will follow-up for scheduled lumbar epidural steroid injection. He can follow-up via telehealth 2 weeks following procedure. I did discuss with him that I may not be here at that time. He can likely follow-up with whoever performs the procedure. Thank you for allowing us the opportunity to participate in Kosta's care. Valentin Westbrook DO [facility] [employer] [facility] [address] [address] / [facility] CC: Wander Guillermo MD [address] [place] [address] documented in this encounter Plan of Treatment Scheduled Referrals Name Type Priority Associated Diagnoses Orde r Schedule Referral to Spine Center Outpatient Referral Routine Herniation of lumbar intervertebral disc with radiculopathy Ordered: 05/14/2021 documented as of this encounter Visit Diagnoses Diagnosis Herniation of lumbar intervertebral disc with radiculopathy Intervertebral lumbar disc disorder with myelopathy, lumbar region documented in this encounter Care Teams Contact Center Specialist Relationship Specialty Start Date End Date Wander Guillermo MD [address] [place] [address] PCP - General Internal Medicine 12/28/20 documented as of this encounter
--- OUTSIDE RECORDS SUMMARY | 2024-04-01 17:21 | XMS_ITS | Referral Summary ---
Author Organization [facility] Address [address] [place] [address] Care Team Providers Care Hammer Adjuster Name Role Phone Wander Guillermo MD Primary Care Provider [phone] Social History Tobacco Use Types Packs/Day Years Used Date Smoking Tobacco: Never Assessed Interpersonal Safety Answer Date Record ed Physically Hurt Never 03/15/2020 Verbally Threaten Not on file 03/15/2020 Sex and Gender Information Value Date Recorded Sex Assigned at Not on file Gender Identity Not on file Sexual Orientation Not on file Plan of Treatment Not on file Care Teams Hammer Adjuster Relationship Specialty Start Date End Date Wander Guillermo MD [address] [place] [address] PCP - General 11/01/18
--- NOTE | 2024-04-01 17:40 | DI.RAD_ITS ---
Exam(s) XR SHOULDER RT COMPLETE 2+V EXAM: XR SHOULDER RT COMPLETE 2+V CLINICAL HISTORY: evaluate pathology M25.511. TECHNIQUE: 2D digital imaging was performed of the right shoulder. Five images were obtained. AP, Grashey, Y-view and axillary views were obtained. COMPARISON: No exams were available for comparison FINDINGS: BONES: No acute fracture is present. No bony destructive lesion is seen. JOINTS: No dislocation present. Glenohumeral joint is well maintained. There are mild degenerative c hanges seen at the acromioclavicular joint. SOFT TISSUE: Soft tissue calcification is seen adjacent to the humeral head most suggestive of calcif ic tendinitis. IMPRESSION: Mild degenerative changes seen at the acromioclavicular joint. Calcific tendinitis. DATA REPOSITORY: RADIATION DOSE DELIVERED:
--- NOTE | 2024-04-01 18:07 | DI.VRAD_ITS ---
PROCEDURE INFORMATION: Exam: XR Right Shoulder Exam date and time: 04/01/2024 5:33 PM Age: 44 years old Clinical indication: Pain; Shoulder; Right TECHNIQUE: Imaging protocol: Radiologic exam of the right shoulder. Views: 2 or more views. COMPARISON: No relevant prior studies available. FINDINGS: Bones/joints: Osseous alignment is normal. No acute fracture. No significant arthritic change. Heterotopic calcification superior to the greater tuberosity of the glenoid suggests calcific tendinosis of the rotator cuff. Soft tissues: Normal. IMPRESSION: Findings suggesting calcific tendinosis of the rotator cuff. No acute abnormality. Dictated and Authenticated by: Raul Gaxiola MD. Ordering:MITCHELL Ledezma MD
== END 2024-04-01 17:40 ==
PROVIDERS: PCP Internal Medicine; Visit Provider Nurse Practitioner Family
DX: M19.011 Primary osteoarthritis, right shoulder (principal)
CPT/HCPCS: 73030